=== PATIENT | female | born 1995 | race Caucasian/White ===

== ENCOUNTER 2016-12-23 17:57 | Emergency (ER) | payer OTHER ==
[2016-12-23] MEDS ORDERED: HYDROcod/ACETAM 5/325 MG TABLET PO STA (19:12)
[2016-12-23] MEDS ORDERED: HYDROcod/ACETAM 5/325 MG TABLET ONE (19:15)
== END 2016-12-23 20:19 | disposition home or self-care (01) ==
DX: S93.601A Unspecified sprain of right foot, initial encounter (principal); W01.0XXA Fall on same level from slipping, tripping and stumbling without subsequent striking against object, initial encounter; Y92.210 Daycare center as the place of occurrence of the external cause; Y99.0 Civilian activity done for income or pay
CPT/HCPCS: 1040M; 73630; 99283; A9270

== ENCOUNTER 2018-06-15 08:00 | Outpatient (CLI) | payer OTHER ==
[2018-06-15 15:29] LABS: MUDS CUTOFF CONCENTRATIONS CUTOFF CONC BELOW:
[2018-06-15 15:53] LABS: AMPHETAMINE SCREEN,URINE NEGATIVE (NEGATIVE); BENZODIAZEPINES SCREEN, URINE NEGATIVE (NEGATIVE); COCAINE SCREEN URINE NEGATIVE (NEGATIVE); METHADONE SCREEN, URINE NEGATIVE (NEGATIVE); METHAMPHETAMINES SCREEN, URINE NEGATIVE (NEGATIVE); OPIATE SCREEN, URINE NEGATIVE (NEGATIVE); OXYCODONE SCREEN, URINE NEGATIVE (NEGATIVE); PROPOXYPHENE SCREEN, URINE NEGATIVE (NEGATIVE); TRICYCLIC ANTIDEPRESSANT,URINE NEGATIVE (NEGATIVE)
== END 2018-06-15 08:01 | disposition home or self-care (01) ==
LOC: LAB.R 08:00
PROVIDERS: ATTEND Obstetrics & Gynecology
DX: Z36.9 Encounter for antenatal screening, unspecified (principal)
CPT/HCPCS: 80306

== ENCOUNTER 2018-06-19 15:27 | Outpatient (CLI) | payer OTHER ==
[2018-06-19 15:53] LABS: BASOPHILS # (AUTO) 0.1 10^3/uL (0.0-0.1); EOSINOPHILS % (AUTO) 0.2 %; HGB - HEMOGLOBIN 12.7 g/dL (12.0-16.0); LYMPHOCYTES # (AUTO) 2.7 10^3/uL (1.5-3.5); LYMPHOCYTES % (AUTO) 22.1 %; MEAN CORPUSCULAR HGB CONC 34.4 g/dL (32.0-36.0); MEAN CORPUSCULAR VOLUME 84.3 fL (81.0-99.0); MEAN PLATELET VOLUME 9.1 fL (7.9-10.8); MONOCYTES # (AUTO) 0.8 10^3/uL (0.0-1.0); MONOCYTES % (AUTO) 6.2 %; NEUTROPHILS # (AUTO) 8.8 10^3/uL (1.5-6.6); NEUTROPHILS % (AUTO) 70.5 %; PLT - PLATELET COUNT 229 10^3/uL (130-450); RED BLOOD COUNT 4.37 10^6/uL (4.20-5.40); RED CELL DISTRIBUTION WIDTH 13.8 % (12.0-15.0); WHITE BLOOD COUNT 12.4 x10^3/uL (4.8-10.8)
[2018-06-19 15:55] LABS: BILIRUBIN,URINE NEGATIVE (NEGATIVE); GLUCOSE, URINE (UA) NEGATIVE (NEGATIVE); KETONES,URINE (UA) NEGATIVE (NEGATIVE); LEUKOCYTE ESTERASE, URINE NEGATIVE (NEGATIVE); NITRITE,URINE NEGATIVE (NEGATIVE); OCCULT BLOOD,URINE TRACE-INTA (NEGATIVE); PROTEIN,URINE NEGATIVE (NEGATIVE); UROBILINOGEN,URINE 0.2 (NORMAL) E.U./dL (NORMAL)
[2018-06-19 16:03] LABS: CLARITY,URINE CLEAR (CLEAR)
[2018-06-19 16:12] LABS: BACTERIA,URINE None Seen /HPF (None Seen); RBC,URINE 0-5 /HPF (0-5); SQUAMOUS EPITHELIAL CELL,UR NONE SEEN (<= Few)
[2018-06-20 13:04] LABS: HEPATITIS B SURFACE ANTIGEN NON-REACTIVE (NON-REACTIVE); HEPATITIS C ANTIBODY NON-REACTIVE (NON-REACTIVE)
[2018-06-20 14:15] LABS: HIV AG/AB 4TH GEN NON-REACTIVE (NON-REACTIVE)
== END 2018-06-19 15:28 | disposition home or self-care (01) ==
LOC: LAB 15:27
PROVIDERS: ATTEND Obstetrics & Gynecology
DX: Z36.9 Encounter for antenatal screening, unspecified (principal)
CPT/HCPCS: 36415; 81001; 81599; 85025; 86592; 86762; 86803; 86850; 86900; 86901; 87340; 87389

== ENCOUNTER 2018-06-20 20:47 | Outpatient (CLI) | payer OTHER ==
--- NOTE | 2018-06-21 01:04 | Ultrasound Report ---
Procedure Date: 06/20/2018 Accession Number: [id number] / [id number] Procedure: US - OB First Trimester CPT Code: FULL RESULT: EXAM: FIRST TRIMESTER OBSTETRIC ULTRASOUND (Less than 11 weeks) EXAM DATE: 06/20/2018 10:01 PM. CLINICAL HISTORY: Dating . LMP: 04/19/2018, 8 weeks 6 days. COMPARISONS: None. TECHNIQUE: Transabdominal and transvaginal ultrasound examination with static image documentation. FINDINGS: Gestational Sac: An intrauterine fluid-filled sac contains both an embryo and yolk sac. Tiny perigestational bleed. Embryo: CRL (crown-rump length) measures 21.1 mm corresponding to an estimated gestational age of 8 weeks 5 days. Heart Rate: 183 beats per minute. Placenta: Not visible at this gestational age. Amniotic Fluid: Not accurately assessed at this gestational age. Uterus: Anteverted. Incidental 32 x 26 x 36 mm subserosal fibroid. Cervix: Closed. Right Ovary: Volume 6.8 cc. Normal echotexture and blood flow. Left Ovary: Volume 20.6 cc. Normal echotexture and blood flow, containing a 2.5 x 2 x 2.5 cm complex hemorrhagic-appearing cyst versus endometrioma. Free Fluid: None. Other: None. IMPRESSION: 1. Single live intrauterine at 8 weeks 6 days by LMP, today's exam is concordant -- for an estimated delivery date of 01/24/2019. 2. Incidental 3 cm subserosal fibroid. RADIA
== END 2018-06-20 20:48 | disposition home or self-care (01) ==
LOC: DI 20:47
PROVIDERS: ATTEND Obstetrics & Gynecology
DX: Z32.01 Encounter for pregnancy test, result positive (principal)
CPT/HCPCS: 76801; 76817

== ENCOUNTER 2018-08-16 15:18 | Outpatient (CLI) | payer OTHER | END 2018-08-16 15:19 | disposition home or self-care (01) | LOC: LAB 15:18 | PROVIDERS: ATTEND Obstetrics & Gynecology | DX: Z13.79 Encounter for other screening for genetic and chromosomal anomalies (principal) | CPT/HCPCS: 36415; 81599; 82105; 82677; 84702; 86336 ==

== ENCOUNTER 2018-09-12 07:24 | Outpatient (CLI) | payer OTHER ==
--- NOTE | 2018-09-12 21:28 | Ultrasound Report ---
Reason: ENCOUNTER FOR SCREENING FOR MALFORMATION Procedure Date: 09/12/2018 Accession Number: [id number] / [id number] Procedure: US - OB Detailed Eval CPT Code: FULL RESULT: EXAM: COMPLETE OBSTETRICAL ULTRASOUND EXAM DATE: 09/12/2018 09:58 AM. CLINICAL HISTORY: anatomic survey. COMPARISON: None. TECHNIQUE: Real-time sonographic evaluation of the fetus performed by the truck driver flatbed. Multiple district sales representative static images were saved for review. DATING: Established EGA 20 weeks and 6 days with KILO 01/24/2019 based on LMP. EGA 20 weeks 4 days with KILO 01/26/2019 based on the current ultrasound. GENERAL EVALUATION Page . Cardiac activity: 148 bpm. movement: Visualized. Presentation: Breech. Placenta: Posterior position. No evidence for previa. Umbilical cord: 3 vessel cord. Central placental cord origin. Amniotic fluid: Subjectively normal. MVP 3.8 cm. BIOMETRY Bi-Parietal Diameter (BPD): 4.77 cm, 20 weeks 3 days Head Circumference (HC): 17.81 cm, 20 weeks 2 days Abdominal Circumference (AC): 15.18 cm, 20 weeks 3 days Femur Length (FL): 3.45 cm, 20 weeks 6 days Estimated Weight: 363 g, 31st percentile for 20 weeks 4 days. ANATOMY The intracranial structures, profile, face/nose/lips, spine, 4 chamber heart, stomach, abdominal wall and cord insertion, diaphragm, kidneys, bladder, and extremities were visualized and demonstrate no abnormality. Outflow tracts not well seen. MATERNAL STRUCTURES Uterus: Unremarkable. Cervix: Long and closed. Transabdominal length 4.7 cm. Right ovary/adnexa: Unremarkable. Left ovary/adnexa: Unremarkable. Free fluid: None. IMPRESSION: 1. Page live intrauterine with gestational age 20 weeks 6 days based on LMP. 2. Estimated weight is within expected limits for assigned dating. 3. Normal anatomic survey. No anatomic abnormalities are detected at this time. Outflow tracts not well seen. RADIA
== END 2018-09-12 07:25 | disposition home or self-care (01) ==
LOC: DI 07:24
PROVIDERS: ATTEND Obstetrics & Gynecology
DX: Z36.3 Encounter for antenatal screening for malformations (principal); Z3A.20 20 weeks gestation of pregnancy
CPT/HCPCS: 76811

== ENCOUNTER 2018-09-13 18:50 | Emergency (ER) | payer OTHER ==
[2018-09-13] MEDS ORDERED: ACETAMINOPHEN 325 MG TABLET PO STA (20:57)
--- NOTE | 2018-09-13 21:30 | ED Physician Documentation ---
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 denies: Chills Ears: reports: Ear pain Nose: reports: Congestion Throat: reports: Sore throat Respiratory: denies: Cough GI: denies: Abdominal Pain, Nausea, Vomiting : denies: Now EGA Endocrine: denies: Easy bruising / bleeding Immunocompromised: denies: Immunocompromised PD PAST MEDICAL HISTORY - Past Medical History Past Medical History: No Psych: Anxiety, Bipolar disorder - Past Surgical History Past Surgical History: No - Present Medications Home Medications: Ambulatory Orders Medication Instructions Recorded Confirmed Sertraline HCl [Zoloft] 150 mg PO DAILY 06/07/15 12/23/16 HYDROcod/ACETAM 5/325 [[place] 5/325] 1 - 2 ea PO Q6H PRN #7 tablet 12/23/16 - Allergies Allergies/Adverse Reactions: Allergies Allergy/AdvReac Type Severity Reaction Status Date / Time Sulfa (Sulfonamide Allergy Intermediate Hives Verified 09/13/18 19:27 Antibiotics) sulfamethoxazole Allergy Unknown Verified 09/13/18 19:27 [From ] trimethoprim [From ] Allergy Unknown Verified 09/13/18 19:27 - Social History Does the pt smoke?: No Smoking Status: Never smoker Does the pt drink ETOH?: No Does the pt have substance abuse?: No - Immunizations Immunizations are current?: Yes - POLST Patient has POLST: No PD ED PE NORMAL - Vitals Vital signs reviewed: Yes - General General: Alert and oriented X 3 - HEENT HEENT: PERRL, Ears normal, Moist mucous membranes - Neck Neck: Supple, no meningeal sign - Cardiac Cardiac: RRR - Respiratory Respiratory: No respiratory distress, Clear bilaterally - Abdomen Abdomen: Non tender, Other (gravid) - Derm Derm: Other (slight papular rash to abd) - Neuro Neuro: Alert and oriented X 3 - Free text exam Free text exam: bedside sono shows live IUP with FHT about 150 Results - Vitals Vitals: Vital Signs - 24 hr 09/13/18 09/13/18 09/13/18 19:15 20:57 22:04 Temperature 3.4 C L 38.8 C H Heart Rate 93 88 Respiratory 18 18 Rate Blood Pressure 126/76 124/97 H O2 Saturation 99 98 Oxygen O2 Source Room air - Labs Labs: Laboratory Tests 09/13/18 09/13/18 09/13/18 19:22 21:36 21:57 Urine Color YELLOW Urine Clarity CLEAR Urine pH 7.0 Ur Specific [place] 1.020 Urine Protein NEGATIVE Urine Glucose (UA) NEGATIVE Urine Ketones NEGATIVE Urine Occult Blood NEGATIVE Urine Nitrite NEGATIVE Urine Bilirubin NEGATIVE Urine Urobilinogen 0.2 (NORMAL) Ur Leukocyte Esterase NEGATIVE Ur Microscopic Review NOT INDICATED Urine Culture Comments NOT INDICATED Influenza A (Rapid) Negative Influenza B (Rapid) Negative Group A Strep Rapid Negative PD MEDICAL DECISION MAKING - ED course ED course: UA flu and sstrep neg pt sx are primarily URI she is not tachy or hypotensive or having signs of sepsis will dc with apap up to 3 g per day for fever control Departure - Departure Disposition: 01 Home, Self Care Clinical Impression: Fever Qualifiers: Fever type: unspecified Qualified Code(s): R50.9 - Fever, unspecified Condition: Good Instructions: ED Fever Control, ED URI Viral Follow-Up: Morelia Castillo MD [Primary Care Provider] - Comments: Your labs were fine - you do not have strep or the flu or a urine infection I suspect this is a viral upper respiratory infection. Because you are , tylenol is the only medication recommended for fever You may take up to 3000 mg of tylenol in a 24 hr period If new or different symptoms develop, you should come back to the ER or see your PMD for a recheck
[2018-09-13 22:01] LABS: BILIRUBIN,URINE NEGATIVE (NEGATIVE); GLUCOSE, URINE (UA) NEGATIVE (NEGATIVE); KETONES,URINE (UA) NEGATIVE (NEGATIVE); LEUKOCYTE ESTERASE, URINE NEGATIVE (NEGATIVE); NITRITE,URINE NEGATIVE (NEGATIVE); OCCULT BLOOD,URINE NEGATIVE (NEGATIVE); PROTEIN,URINE NEGATIVE (NEGATIVE); UROBILINOGEN,URINE 0.2 (NORMAL) E.U./dL (NORMAL)
[2018-09-13 22:03] LABS: CLARITY,URINE CLEAR (CLEAR)
[2018-09-13 23:06] VITALS: BP 115/64
== END 2018-09-13 23:11 | disposition home or self-care (01) ==
LOC: ED 18:50
DX: R50.9 Fever, unspecified (principal); R21 Rash and other nonspecific skin eruption
CPT/HCPCS: 81003; 87070; 87275; 87276; 87430; 99282; 99283; A9270; 81001; 87086

== ENCOUNTER 2018-09-29 15:25 | Outpatient (CLI) | payer OTHER ==
[2018-09-29 17:09] LABS: MEAN CORPUSCULAR HEMOGLOBIN 29.5 pg (27.0-31.0); MEAN CORPUSCULAR HGB CONC 33.3 g/dL (32.0-36.0); MEAN CORPUSCULAR VOLUME 88.4 fL (81.0-99.0); MEAN PLATELET VOLUME 9.3 fL (7.9-10.8); RED BLOOD COUNT 4.07 10^6/uL (4.20-5.40); RED CELL DISTRIBUTION WIDTH 14.2 % (12.0-15.0); WHITE BLOOD COUNT 11.1 x10^3/uL (4.8-10.8)
== END 2018-09-29 15:26 | disposition home or self-care (01) ==
LOC: LAB 15:25
PROVIDERS: ATTEND Obstetrics & Gynecology
DX: Z36.89 Encounter for other specified antenatal screening (principal)
CPT/HCPCS: 36415; 82950; 85027; 86850

== ENCOUNTER 2018-12-14 12:51 | Outpatient (CLI) | payer OTHER ==
--- NOTE | 2018-12-14 17:03 | Ultrasound Report ---
Reason: 21 WEEKS GESTATION OF , CARE;[facility] Procedure Date: 12/14/2018 Accession Number: [id number] / [id number] Procedure: US - OB F/U or Repeat CPT Code: FULL RESULT: EXAM: FOLLOW-UP OBSTETRICAL ULTRASOUND EXAM DATE: 12/14/2018 02:21 PM. CLINICAL HISTORY: Follow-up outflow tracts. COMPARISON: 09/12/2018 TECHNIQUE: Real-time sonographic evaluation of the fetus performed by the repair electric motor assembler. Multiple medical collections representative static images were saved for review. DATING: Established EGA 34 weeks 1 day with KILO 01/24/2019 based on physician stated.. EGA 34 weeks 0 days with KILO 01/25/2019 based on prior ultrasound of 06/20/2018. EGA 32 weeks 6 days with KILO 02/02/2019 based on the current ultrasound. GENERAL EVALUATION Page . Cardiac activity: 144 bpm. movement: Present Presentation: Cephalic. Placenta: Posterior position. Amniotic fluid: Normal. JANE 11.2 cm. MVP 4.8 cm. BIOMETRY Bi-Parietal Diameter (BPD): 8.2 cm, 33 weeks 0 days Head Circumference (HC): 30.1 cm, 33 weeks 2 days Abdominal Circumference (AC): 28.7 cm, 32 weeks 5 days Femur Length (FL): 6.3 cm, 32 weeks 4 days Estimated Weight: 2045 g, 13th percentile for 32 weeks 3 days. ANATOMY The cardiac outflow tracts appear normal. MATERNAL STRUCTURES Not assessed. IMPRESSION: 1. Page intrauterine with gestational age 32 weeks 6 days based on the current ultrasound. 2. Estimated weight is at the 13th percentile. 3. No abnormality of the cardiac outflow tracts identified. RADIA
== END 2018-12-14 12:52 | disposition home or self-care (01) ==
LOC: DI 12:51
PROVIDERS: ATTEND Obstetrics & Gynecology
DX: Z34.83 Encounter for supervision of other normal pregnancy, third trimester (principal); Z3A.32 32 weeks gestation of pregnancy
CPT/HCPCS: 76816

== ENCOUNTER 2018-12-22 08:00 | Outpatient (CLI) | payer OTHER | END 2018-12-22 23:59 | disposition home or self-care (01) | LOC: LAB.R 08:00 | PROVIDERS: ATTEND Obstetrics & Gynecology | DX: Z3A.35 35 weeks gestation of pregnancy (principal) | CPT/HCPCS: 87077; 87081; 87491; 87591; 87797 ==

== ENCOUNTER 2019-01-09 00:40 | Outpatient (CLI) | payer OTHER ==
[2019-01-09 01:07] VITALS: BP 127/70
== END 2019-01-09 01:47 | disposition home or self-care (01) ==
LOC: WFO 00:40 → FBP 00:41 → WFO 01:47
PROVIDERS: ATTEND Obstetrics & Gynecology
DX: Z34.03 Encounter for supervision of normal first pregnancy, third trimester (principal)
CPT/HCPCS: 99212

== ENCOUNTER 2019-01-12 16:37 | Outpatient (CLI) | payer OTHER ==
[2019-01-12 17:03] VITALS: BP 129/74
== END 2019-01-12 17:45 | disposition home or self-care (01) ==
LOC: WFO 16:37 → FBP 16:38 → WFO 17:45
PROVIDERS: ATTEND Obstetrics & Gynecology
DX: Z34.03 Encounter for supervision of normal first pregnancy, third trimester (principal)
CPT/HCPCS: 99213

== ENCOUNTER 2019-01-21 11:49 | Outpatient (CLI) | payer OTHER ==
[2019-01-21 12:51] VITALS: BP 113/72
== END 2019-01-21 13:10 | disposition home or self-care (01) ==
LOC: WFO 11:49 → FBP 12:13 → WFO 13:10
PROVIDERS: ATTEND Obstetrics & Gynecology
DX: Z34.93 Encounter for supervision of normal pregnancy, unspecified, third trimester (principal)
CPT/HCPCS: 99213

== ENCOUNTER 2019-01-24 04:17 | Inpatient (IN) | payer OTHER ==
[2019-01-24] MEDS ORDERED: PENICILLIN G POTASSIUM 5,000,000 UNIT in SODIUM CHLORIDE 0.9% MINIBAG 100 ML IV ONE (04:56)
[2019-01-24] MEDS ORDERED: SODIUM CHLORIDE FLUSH 0.9% 10 ML SYRINGE IVP PRN (04:56)
[2019-01-24] MEDS ORDERED: LACTATED RINGERS 1,000 ML IV SCH (05:00)
[2019-01-24 06:19] LABS: BASOPHILS # (AUTO) 0.1 10^3/uL (0.0-0.1); BASOPHILS % (AUTO) 0.6 %; EOSINOPHILS % (AUTO) 0.2 %; HGB - HEMOGLOBIN 12.9 g/dL (12.0-16.0); LYMPHOCYTES # (AUTO) 2.2 10^3/uL (1.5-3.5); MEAN CORPUSCULAR HEMOGLOBIN 29.8 pg (27.0-31.0); MEAN CORPUSCULAR VOLUME 87.7 fL (81.0-99.0); MEAN PLATELET VOLUME 10.1 fL (7.9-10.8); MONOCYTES # (AUTO) 0.8 10^3/uL (0.0-1.0); MONOCYTES % (AUTO) 6.9 %; NEUTROPHILS # (AUTO) 9.1 10^3/uL (1.5-6.6); NEUTROPHILS % (AUTO) 74.3 %; PLT - PLATELET COUNT 179 10^3/uL (130-450); RED BLOOD COUNT 4.31 10^6/uL (4.20-5.40); RED CELL DISTRIBUTION WIDTH 13.5 % (12.0-15.0); WHITE BLOOD COUNT 12.2 x10^3/uL (4.8-10.8)
--- NOTE | 2019-01-24 08:51 | ANESTHESIA ---
Pre-Anesthesia VS, & Labs - Diagnosis Active labor - Procedure vaginal delivery Vital Signs: Temp Pulse Resp BP Pulse Ox 36.5 C 84 24 127/85 H 100 01/24/19 04:32 01/24/19 04:32 01/24/19 04:32 01/24/19 04:32 01/24/19 04:32 Height 5 ft 7 in Body Mass Index 36.8 - NPO Other (on clear liquids) - Is Patient ?: Yes - Lab Results Current Lab Results: Laboratory Tests 01/24/19 06:08: WBC 12.2 H, RBC 4.31, Hgb 12.9, Hct 37.8, MCV 87.7, MCH 29.8, MCHC 34.0, RDW 13.5, Plt Count 179, MPV 10.1, Neut # (Auto) 9.1 H, Lymph # (Auto) 2.2, [place] # (Auto) 0.8, Eos # (Auto) 0.0, Baso # (Auto) 0.1, Absolute Nucleated RBC 0.01, Nucleated RBC % 0.1 Lab results reviewed: Yes Fish Bones: 01/24/19 06:08 Home Medications and Allergies Active Medications Lactated Ringer's (Lr) 1,000 mls @ 150 mls/hr IV .Q6H40M RIK Last Admin: 01/24/19 06:21 Dose: 150 mls/hr Penicillin G Potassium 2,500, (000 unit/ Sodium Chloride) 100 mls @ 200 mls/hr IV Q4H RIK Sodium Chloride (Normal Saline Flush 0.9%) 10 ml IVP PRN PRN PRN Reason: NEEDED PER PROVIDER ORDERS Sodium Chloride (Normal Saline Flush 0.9%) 10 ml IVP 0100,0900,1700 [facility] Sertraline HCl [Zoloft] 150 mg PO DAILY 06/07/15 prozac 20mg daily Allergies/Adverse Reactions: Allergies Allergy/AdvReac Type Severity Reaction Status Date / Time Sulfa (Sulfonamide Allergy Intermediate Hives Verified 09/13/18 19:27 Antibiotics) sulfamethoxazole Allergy Unknown Verified 09/13/18 19:27 [From ] trimethoprim [From ] Allergy Unknown Verified 09/13/18 19:27 Anes History & Medical History - Anesthetic History Family history of Anesthesia Complications: Denies Family history of Malignant Hyperthermia: Denies - Medical History Cardiovascular: reports: None Pulmonary: reports: None Gastrointestinal: reports: None Urinary: reports: None Neuro: reports: None Musculoskeletal: reports: None Endocrine/Autoimmune: reports: None Blood Disorders: reports: None Smoking Status: Never smoker Psychosocial: reports: Depression, Anxiety Exam General: Alert, Oriented x3, Cooperative, No acute distress Dental: WNL Mouth Openin Fingerbreadth Neck Mobility: Normal Mallampati classification: II Thyromental Distance: 4-6 cm Respiratory: Lungs clear, Normal breath sounds, No respiratory distress, No accessory muscle use Cardiovascular: Regular rate, Normal S1, Normal S2, No murmurs Mental/Cognitive Status: Alert/Oriented X3, Normal for patient Plan Anesthesia Type: Epidural Consent for Procedure(s) Verified and Reviewed: Yes Code Status: Attempt Resuscitation ASA classification: 2-Mild systemic disease Is this case an emergency?: No
[2019-01-24] MEDS ORDERED: SODIUM CHLORIDE FLUSH 0.9% 10 ML SYRINGE IVP SCH (09:00)
[2019-01-24] MEDS ORDERED: PENICILLIN G POTASSIUM 2,500,000 UNIT in SODIUM CHLORIDE 0.9% 100ML 100 ML IV SCH ×2 (09:00→11:00)
--- NOTE | 2019-01-24 09:14 | HISTORY & PHYSICAL EXAMINATION ---
Chief Complaint - Chief Complaint Chief Complaint: Contractions History of Present Illness - Admitted From Admitted From:: HOME - History Obtained From Records Reviewed: YES History obtained from: PATIENT Exam Limitations: NONE - History of Present Illness HPI Comment/Other: 23 y.o. with EDC 01/24/10 by LMP and 8 week US, admitted early this AM in labor for delivery. GBS +, she received her first dose of PCN at 0630 hours and is receiving PCN q4h until delivery. She was admitted at 4 cm dilation, has a category I FHR tracing. Cx exam by me at 0815 480/-1/VTX/BOWI. Course: 1) Anxiety/Depression: Has been on prozac since several months before . No hx of hospitalization for this or suicidal ideation. 2) Migraines: Intermittent in nature. She reports having this since about age 14. Saw a neurologist at start of . Work-up by possible imaging to be continued . Patient usually takes tylenol for h/a during . Has only had a few episodes of h/a during , none now. 3) Low Back Spasms: Intermittent in nature. No hx of trauma LABS: Quad Screen Negative 06/15/18: Pap WNL GC/CT Neg x 2 06/19/18: Urine Tox Neg Rubella POS HBsAg/HIV/RPR all NR x 3 Hep C Neg MBT A POS PNAS Neg 07/23/18: TSH 2.02 09/29/18: HCT/PLT 36/201 1 HR GTT 120 12/20/18: GBS POS Immunizations: Flu 07/28/18 TDAP 11/27/18 PMH: Anxiety/Depression (above), Back Spasms, Migraines (above) Meds: PNV, Prozac 10 mg/d PSH: Neg SHx: Neg for smoking/ETOH/Drugs Allergy: Sulfa (itching and hives) History - Past Medical History Cardiovascular: reports: None Respiratory: reports: None Neuro: reports: Migraines Endocrine/Autoimmune: reports: None GI: reports: None 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 : reports: None HEENT: reports: None Psych: reports: Depression, Anxiety Musculoskeletal: reports: Other (Intermittent Back Spasms) Derm: reports: None MRSA Hx?: No - Past Surgical History Other past surgical history: PSH NEGATIVE - Substance History Use: Uses substance without health or social issues: NONE - POLST Patient has POLST: No Meds/Allgy - Allergies Allergies/Adverse Reactions: Allergies Allergy/AdvReac Type Severity Reaction Status Date / Time Sulfa (Sulfonamide Allergy Intermediate Hives Verified 09/13/18 19:27 Antibiotics) sulfamethoxazole Allergy Unknown Verified 09/13/18 19:27 [From ] trimethoprim [From ] Allergy Unknown Verified 09/13/18 19:27 Exam - Vital Signs Reviewed Vital Signs: Yes Vital Signs: Vital Signs x48h Temp Pulse Resp BP Pulse Ox 01/24/19 04:32 36.5 C 84 24 127/85 H 100 - Physical Exam General Appearance: positive: No acute distress, Alert Eyes Bilateral: positive: Normal inspection ENT: positive: ENT inspection nml, Pharynx nml Neck: positive: Nml inspection Respiratory: positive: Chest non-tender, No respiratory distress, Breath sounds nml Cardiovascular: positive: Regular rate & rhythm, No murmur, No gallop Peripheral Pulses: positive: 2+ Abdomen: positive: Non-tender, No organomegaly, Other (CX 4/80/-1/VTX/BOWI at 0815 hours. Category I FHR tracing with contactions q4-6 mins,) Back: positive: Nml inspection Skin: positive: Color nml, No rash, Warm Neurologic/Psychiatric: positive: Oriented x3, CN's nml (2-12) Conclusion/Plan - Problem List (1) Active labor at term Conclusion/Plan: # 23 y.o. 40 0/7 weeks in active, spontaneous labor at 4 cm dilation, BOWI, Category I FHR tracing, adequate pelvis, [place] 7 1/2 lbs. # GBS + and is getting PCN ABX prophylaxis, first dose at 0630 hours. # Analgesia: currently on Nitrous oxide, interested in epidural later. # Prozac 10 mg/d for anxiety/depression, currently no issues. # Labor Plan: Patient has a labor plan that has been reviewed and discussed with the patient and her partner. Requests are reasonable. One of items mentioned in plan was for FOB to cut the cord at delivery. I explained I would try to honor that specific request, if possible, at the time of delivery. All questions answered to their satisfaction. Plan: Expectant management at this time. Will re-examine patient after 2nd dose of ABX for GBS given (scheduled for 1030 hours) AROM/Pitocin Augmentation/Epidural as needed. - Lab Results Lab results reviewed: Yes Fish Bones: 01/24/19 06:08
--- NOTE | 2019-01-24 12:44 | PROVIDER PROGRESS NOTE ---
Subjective - Prog Note Date Prog Note Date: 01/24/19 Prog Note Time: 12:38 - Subjective Subjective: Category I FHR tracing with spontaneous contractions q4 min. 2nd dose of PCN for GBS prophylaxis completed. AROM performed on multiple attempts with no fluid obtained. FSE applied easily with excellent quality signal. Abdominal bedside US by me showed no amniotic fluid pockets around baby, suggesting patient was successfully AROMed but with oligohydramnios. IUPC placement was attempted but catheter came out partially twice. Patient is making cervical change, now 6/- 1. ANS here for epidural. Will continue to allow patient to labor spontaneously as she continues to make cervical change with spontaneous contractions. Objective - Vital Signs/Intake & Output Vital Signs: Vital Signs x48h Temp Pulse Resp BP 01/24/19 08:00 36.7 C 79 18 128/76 - Lab Results Fish Bones: 01/24/19 06:08 Other Labs: Lab Results x24hrs 01/24/19 Range/Units 06:08 WBC 12.2 H (4.8-10.8) x10^3/uL RBC 4.31 (4.20-5.40) 10^6/uL Hgb 12.9 (12.0-16.0) g/dL Hct 37.8 (37.0-47.0) % MCV 87.7 (81.0-99.0) fL MCH 29.8 (27.0-31.0) pg MCHC 34.0 (32.0-36.0) g/dL RDW 13.5 (12.0-15.0) % Plt Count 179 (130-450) 10^3/uL MPV 10.1 (7.9-10.8) fL Neut # (Auto) 9.1 H (1.5-6.6) 10^3/uL Lymph # (Auto) 2.2 (1.5-3.5) 10^3/uL [place] # (Auto) 0.8 (0.0-1.0) 10^3/uL Eos # (Auto) 0.0 (0.0-0.7) 10^3/uL Baso # (Auto) 0.1 (0.0-0.1) 10^3/uL Absolute Nucleated RBC 0.01 x10^3/uL Nucleated RBC % 0.1 /100WBC
[2019-01-24] MEDS ORDERED: fent/BUPIV 2 MCG/0.125% 250 ML EP ONE (12:54)
[2019-01-24] MEDS ORDERED: BUPIVACAINE 0.25% PF 10 ML VIAL ONE (12:54)
[2019-01-24] MEDS ORDERED: fent/BUPIV 2 MCG/0.125% 250 ML EP PRN (13:09)
[2019-01-24] MEDS ORDERED: ONDANSETRON 4 MG/2 ML VIAL IVP PRN (13:09)
[2019-01-24] MEDS ORDERED: ePHEDrine 50 MG/ML VIAL IVP PRN (13:09)
[2019-01-24] MEDS ORDERED: NALBUPHINE 10 MG/ML AMP IVP PRN (13:09)
[2019-01-24] MEDS ORDERED: NALOXONE 0.4 MG/ML VIAL IVP PRN (13:09)
[2019-01-24] MEDS ORDERED: LACTATED RINGERS 500 ML IV ONE (13:09)
--- NOTE | 2019-01-24 15:19 | PROVIDER PROGRESS NOTE ---
Subjective - Prog Note Date Prog Note Date: 01/24/19 Prog Note Time: 15:16 - Subjective Subjective: Patient now with functional epidural. Category I FHR tracing with spontaneous contractions. AL/C/-1. Continue present care. Objective - Vital Signs/Intake & Output Vital Signs: Vital Signs x48h Temp Pulse Resp BP 01/24/19 08:00 36.7 C 79 18 128/76 Intake & Output: Intake & Output 01/21/19 01/22/19 01/23/19 01/24/19 23:59 23:59 23:59 23:59 Intake Total 1000 Balance 1000 - Lab Results Fish Bones: 01/24/19 06:08 Other Labs: Lab Results x24hrs 01/24/19 Range/Units 06:08 WBC 12.2 H (4.8-10.8) x10^3/uL RBC 4.31 (4.20-5.40) 10^6/uL Hgb 12.9 (12.0-16.0) g/dL Hct 37.8 (37.0-47.0) % MCV 87.7 (81.0-99.0) fL MCH 29.8 (27.0-31.0) pg MCHC 34.0 (32.0-36.0) g/dL RDW 13.5 (12.0-15.0) % Plt Count 179 (130-450) 10^3/uL MPV 10.1 (7.9-10.8) fL Neut # (Auto) 9.1 H (1.5-6.6) 10^3/uL Lymph # (Auto) 2.2 (1.5-3.5) 10^3/uL [place] # (Auto) 0.8 (0.0-1.0) 10^3/uL Eos # (Auto) 0.0 (0.0-0.7) 10^3/uL Baso # (Auto) 0.1 (0.0-0.1) 10^3/uL Absolute Nucleated RBC 0.01 x10^3/uL Nucleated RBC % 0.1 /100WBC
[2019-01-24] MEDS ORDERED: OXYTOCIN/SODIUM CHLORIDE 500 ML IV ONE (15:23)
[2019-01-24] MEDS ORDERED: LIDOCAINE-MPF 1% 30 ML VIAL ONE (18:27)
[2019-01-24] MEDS ORDERED: HYDROCORTISONE 1% CREAM 28 GM TUBE PR PRN (19:50)
[2019-01-24] MEDS ORDERED: MAGNESIUM HYDROXIDE 2,400 MG/30 ML UDC PO PRN (19:50)
[2019-01-24] MEDS ORDERED: OXYTOCIN/SODIUM CHLORIDE 500 ML IV PRN (19:50)
--- NOTE | 2019-01-24 20:07 | PROVIDER PROGRESS NOTE ---
Subjective - Prog Note Date Prog Note Date: 01/24/19 Prog Note Time: 19:56 - Subjective Subjective: OPERATIVE DELIVERY NOTE: FORCEPS: MIGUEL ANS: EPIDURAL STATION: OUTLET (4/5+) POSITIONS: AMANDA <45 DEGREES ROTATION INDICATION: NRFHR COMMENTS: Patient progressed to C/C/+1 at 1539. Pushed intermittently for first two hours with cxns q 4 min. Began having regular FHR decels down to 80s - 90s with pushing. Called for Peds. Patient was able to push baby down to 4+ station. Counseled and consented verbablly for forceps delivery regarding major risks/ complications (bladder/rectal injury, incontinence of flatus/feces). Patient agreed to forceps. Bladder emptied via straight cath by me. Miguel forceps applied easily in routine fashion and 15 degree rotation to straight OA performed. Patient instructed to push and on first set of push-pulls head brought out past perineal opening, forceps removed, and mother pushed baby out spontaneously. Cord clamped x 2 immediately, cut between clamps and baby handed to check examiner. Segment of cord set aside for gases. Cord blood obtained. IV rapid pitocin infusion started. Baby delivered was viable female with 7/9 (weight pending) at 1836 hours. Placenta delivered spontaneously at 1839 hours. Exam of canal revealed intact cervix, BL vaginal floor lacs at 5 and 7 oclock positions, the one at 5 oclock only 2", the one at 7 oclock approx 5 4 inches. Both lacs repaired with running and locking 3-0 vicryl with good hemostasis. Perineal body reinforced with interrupted 3-0 vicryl to 2 and superficial first degree perineal lac with 3-0 vcryl in layers. 15 ml of 1% lidocaine plain local ANS used. No bleeding at end of repair. EBL 500 mL. Both mother and baby doing well. Objective - Vital Signs/Intake & Output Intake & Output: Intake & Output 01/21/19 01/22/19 01/23/19 01/24/19 23:59 23:59 23:59 23:59 Intake Total 1000 Balance 1000 - Lab Results Fish Bones: 01/24/19 06:08 Other Labs: Lab Results x24hrs 01/24/19 Range/Units 06:08 WBC 12.2 H (4.8-10.8) x10^3/uL RBC 4.31 (4.20-5.40) 10^6/uL Hgb 12.9 (12.0-16.0) g/dL Hct 37.8 (37.0-47.0) % MCV 87.7 (81.0-99.0) fL MCH 29.8 (27.0-31.0) pg MCHC 34.0 (32.0-36.0) g/dL RDW 13.5 (12.0-15.0) % Plt Count 179 (130-450) 10^3/uL MPV 10.1 (7.9-10.8) fL Neut # (Auto) 9.1 H (1.5-6.6) 10^3/uL Lymph # (Auto) 2.2 (1.5-3.5) 10^3/uL [place] # (Auto) 0.8 (0.0-1.0) 10^3/uL Eos # (Auto) 0.0 (0.0-0.7) 10^3/uL Baso # (Auto) 0.1 (0.0-0.1) 10^3/uL Absolute Nucleated RBC 0.01 x10^3/uL Nucleated RBC % 0.1 /100WBC
[2019-01-24] MEDS: ACETAMINOPHEN 325 MG TABLET PO PRN (20:15)
[2019-01-24] MEDS: DOCUSATE SODIUM 100 MG CAPSULE PO SCH (20:15)
[2019-01-24] MEDS: IBUPROFEN 800 MG TABLET PO PRN (20:15)
[2019-01-24] MEDS: WITCH HAZEL/GLYCERIN 1 EACH MED..PAD TOP PRN (20:16)
[2019-01-25] MEDS: ACETAMINOPHEN 325 MG TABLET PO PRN ×5 (00:25→19:54)
[2019-01-25] MEDS: IBUPROFEN 800 MG TABLET PO PRN ×4 (03:08→21:22)
[2019-01-25 06:55] LABS: BASOPHILS # (AUTO) 0.1 10^3/uL (0.0-0.1); BASOPHILS % (AUTO) 0.5 %; EOSINOPHILS % (AUTO) 0.2 %; HGB - HEMOGLOBIN 10.8 g/dL (12.0-16.0); LYMPHOCYTES # (AUTO) 2.4 10^3/uL (1.5-3.5); MEAN CORPUSCULAR HEMOGLOBIN 29.5 pg (27.0-31.0); MEAN CORPUSCULAR HGB CONC 33.2 g/dL (32.0-36.0); MEAN CORPUSCULAR VOLUME 88.8 fL (81.0-99.0); MEAN PLATELET VOLUME 9.9 fL (7.9-10.8); MONOCYTES % (AUTO) 7.3 %; NEUTROPHILS # (AUTO) 10.7 10^3/uL (1.5-6.6); PLT - PLATELET COUNT 167 10^3/uL (130-450); RED BLOOD COUNT 3.67 10^6/uL (4.20-5.40); RED CELL DISTRIBUTION WIDTH 13.8 % (12.0-15.0); WHITE BLOOD COUNT 14.2 x10^3/uL (4.8-10.8)
[2019-01-25] MEDS: DOCUSATE SODIUM 100 MG CAPSULE PO SCH ×2 (09:03→21:22)
[2019-01-25] MEDS: SIMETHICONE CHEW 80 MG TABLET PO PRN ×2 (09:03→15:10)
--- NOTE | 2019-01-25 09:11 | PROVIDER PROGRESS NOTE ---
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 O: VSS/AF Ux firm U-6 and NT Normal lochia MS/NM: N/C A/P: PPD #1 doing well Routine care. Objective - Vital Signs/Intake & Output Vital Signs: Vital Signs x48h Temp Pulse Resp BP Pulse Ox 01/25/19 05:52 36.7 C 80 16 103/62 100 Intake & Output: Intake & Output 01/22/19 01/23/19 01/24/19 01/25/19 23:59 23:59 23:59 23:59 Intake Total 1200 500 Output Total 480 200 Balance 720 300 - Lab Results Fish Bones: 01/25/19 06:18 Other Labs: Lab Results x24hrs 01/25/19 Range/Units 06:18 WBC 14.2 H (4.8-10.8) x10^3/uL RBC 3.67 L (4.20-5.40) 10^6/uL Hgb 10.8 L (12.0-16.0) g/dL Hct 32.6 L (37.0-47.0) % MCV 88.8 (81.0-99.0) fL MCH 29.5 (27.0-31.0) pg MCHC 33.2 (32.0-36.0) g/dL RDW 13.8 (12.0-15.0) % Plt Count 167 (130-450) 10^3/uL MPV 9.9 (7.9-10.8) fL Neut # (Auto) 10.7 H (1.5-6.6) 10^3/uL Lymph # (Auto) 2.4 (1.5-3.5) 10^3/uL [place] # (Auto) 1.0 (0.0-1.0) 10^3/uL Eos # (Auto) 0.0 (0.0-0.7) 10^3/uL Baso # (Auto) 0.1 (0.0-0.1) 10^3/uL Absolute Nucleated RBC 0.01 x10^3/uL Nucleated RBC % 0.1 /100WBC
[2019-01-25] MEDS: oxyCODONE 5 MG TABLET PO PRN ×3 (12:44→23:20)
[2019-01-25] MEDS: WITCH HAZEL/GLYCERIN 1 EACH MED..PAD TOP PRN (15:10)
[2019-01-26] MEDS: ACETAMINOPHEN 325 MG TABLET PO PRN ×4 (01:26→15:06)
[2019-01-26] MEDS: IBUPROFEN 800 MG TABLET PO PRN ×3 (02:49→15:06)
[2019-01-26] MEDS: oxyCODONE 5 MG TABLET PO PRN (03:02)
--- NOTE | 2019-01-26 08:15 | Discharge Plan ---
Discharge Plan Disposition: 01 Home, Self Care Diet: Regular Activity Restrictions: SEE WRITTEN INSTRUCTIONS Shower Restrictions: No Weight Bearing: Full Weight Additional Instructions or Follow Up instructions: SEE DR. WINN AT [facility] 2 WEEKS . CALL FOR APPOINTMENT IF ONE NOT GIVEN AT DISCHARGE. No Smoking: If you smoke, Please STOP! Call for help.
--- NOTE | 2019-01-26 08:25 | DISCHARGE SUMMARY ---
"Discharge Summary Admit Date: 01/24/19 Discharge Date: 01/26/19 Discharging Provider: AUSTIN Condition at Discharge: Good Discharge Disposition: 01 Home, Self Care - DIAGNOSES Admission Diagnoses: TERM LABOR Discharge Diagnoses with Status of Each Condition: LABOR (GOOD CONDITION) OUTLET FORCEPS-ASSISTED VAGINAL DELIVERY (GOOD CONDITION) - HPI History of Present Illness: History of Present Illness - Admitted From Admitted From:: HOME - History Obtained From Records Reviewed: YES History obtained from: PATIENT Exam Limitations: NONE - History of Present Illness HPI Comment/Other: 23 y.o. with EDC 01/24/10 by LMP and 8 week US, admitted early this AM in labor for delivery. GBS +, she received her first dose of PCN at 0630 hours and is receiving PCN q4h until delivery. She was admitted at 4 cm dilation, has a category I FHR tracing. Cx exam by me at 0815 480/-1/VTX/BOWI. Course: 1) Anxiety/Depression: Has been on prozac since several months before . No hx of hospitalization for this or suicidal ideation. 2) Migraines: Intermittent in nature. She reports having this since about age 14. Saw a neurologist at start of . Work-up by possible imaging to be continued . Patient usually takes tylenol for h/a during . Has only had a few episodes of h/a during , none now. 3) Low Back Spasms: Intermittent in nature. No hx of trauma LABS: Quad Screen Negative 06/15/18: Pap WNL GC/CT Neg x 2 06/19/18: Urine Tox Neg Rubella POS HBsAg/HIV/RPR all NR x 3 Hep C Neg MBT A POS PNAS Neg 07/23/18: TSH 2.02 09/29/18: HCT/PLT 36/201 1 HR GTT 120 12/20/18: GBS POS Immunizations: Flu 07/28/18 TDAP 11/27/18 PMH: Anxiety/Depression (above), Back Spasms, Migraines (above) Meds: PNV, Prozac 10 mg/d PSH: Neg SHx: Neg for smoking/ETOH/Drugs Allergy: Sulfa (itching and hives) History - Past Medical History Cardiovascular: reports: None Respiratory: reports: None Neuro: reports: Migraines Endocrine/Autoimmune: reports: None GI: reports: None 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 : reports: None HEENT: reports: None Psych: reports: Depression, Anxiety Musculoskeletal: reports: Other (Intermittent Back Spasms) Derm: reports: None MRSA Hx?: No - Past Surgical History Other past surgical history: PSH NEGATIVE - Substance History Use: Uses substance without health or social issues: NONE - POLST Patient has POLST: No Meds/Allgy - Allergies Allergies/Adverse Reactions: Allergies Allergy/AdvReac Type Severity Reaction Status Date / Time Sulfa (Sulfonamide Allergy Intermediate Hives Verified 09/13/18 19:27 Antibiotics) sulfamethoxazole Allergy Unknown Verified 09/13/18 19:27 [From ] trimethoprim [From ] Allergy Unknown Verified 09/13/18 19:27 Exam - Vital Signs Reviewed Vital Signs: Yes Vital Signs: Vital Signs x48h Temp Pulse Resp BP Pulse Ox 01/24/19 04:32 36.5 C 84 24 127/85 H 100 - Physical Exam General Appearance: positive: No acute distress, Alert Eyes Bilateral: positive: Normal inspection ENT: positive: ENT inspection nml, Pharynx nml Neck: positive: Nml inspection Respiratory: positive: Chest non-tender, No respiratory distress, Breath sounds nml Cardiovascular: positive: Regular rate & rhythm, No murmur, No gallop Peripheral Pulses: positive: 2+ Abdomen: positive: Non-tender, No organomegaly, Other (CX 4/80/-1/VTX/BOWI at 0815 hours. Category I FHR tracing with contactions q4-6 mins,) Back: positive: Nml inspection Skin: positive: Color nml, No rash, Warm Neurologic/Psychiatric: positive: Oriented x3, CN's nml (2-12) Conclusion/Plan - Problem List (1) Active labor at term Conclusion/Plan: # 23 y.o. 40 0/7 weeks in active, spontaneous labor at 4 cm dilation, BOWI, Category I FHR tracing, adequate pelvis, [place] 7 1/2 lbs. # GBS + and is getting PCN ABX prophylaxis, first dose at 0630 hours. # Analgesia: currently on Nitrous oxide, interested in epidural later. # Prozac 10 mg/d for anxiety/depression, currently no issues. # Labor Plan: Patient has a labor plan that has been reviewed and discussed with the patient and her partner. Requests are reasonable. One of items mentioned in plan was for FOB to cut the cord at delivery. I explained I would try to honor that specific request, if possible, at the time of delivery. All questions answered to their satisfaction. Plan: Expectant management at this time. Will re-examine patient after 2nd dose of ABX for GBS given (scheduled for 1030 hours) AROM/Pitocin Augmentation/Epidural as needed. - Lab Results Lab results reviewed: Yes Fish Bones: 01/24/19 06:08 - CONSULTS | PROCEDURES Procedures: EPIDURAL ANESTHESIA FORCEPS-ASSISTED VAGINAL DELIVERY - HOSPITAL COURSE Hospital Course: The patient received IV ABX for GBS prophylaxis. She subsequently underwent an outlet forceps-assisted vaginal delivery on 01/24/19 at 1836 hours productive of 7 6 lbs. 7.2 onz female with 7/9. She had BL vaginal floor lacs and first degree perineal lac. that were all repaired without difficulty. EBL at delivery was average. She had an uncomplicated course. - ALLERGIES Allergies/Adverse Reactions: Allergies Allergy/AdvReac Type Severity Reaction Status Date / Time Sulfa (Sulfonamide Allergy Intermediate Hives Verified 09/13/18 19:27 Antibiotics) sulfamethoxazole Allergy Unknown Verified 09/13/18 19:27 [From ] trimethoprim [From ] Allergy Unknown Verified 09/13/18 19:27 - MEDICATIONS Home Medications Other | Comments: Motrin 800 mg, #45: 1 p.o. q8h WF prn pain. Colace 100 mg #30: 1 p.o. bid prn constipation - PHYSICAL EXAM AT DISCHARGE General Appearance: positive: No acute distress, Alert Cardiovascular: positive: Regular rate & rhythm, No murmur, No gallop Peripheral Pulses: positive: 2+ Abdomen: positive: Non-tender, Other (Ux firm U-4 and NT, normal lochia) Back: positive: Nml inspection Skin: positive: Color nml, No rash, Warm Extremities: positive: Non-tender, Full ROM Neurologic/Psychiatric: positive: Oriented x3, CN's nml (2-12), Motor nml - LABS Result Diagrams: 01/25/19 06:18 - FOLLOW UP Follow Up: SEE DR. WINN IN 2 WEEKS. CALL FOR APPOINTMENT IF ONE NOT GIVEN AT DISCHARGE. - TIME SPENT Time Spent in Discharge (Minutes): 45"
[2019-01-26] MEDS: DOCUSATE SODIUM 100 MG CAPSULE PO SCH (09:13)
[2019-01-26 15:30] VITALS: BP 103/58
--- NOTE | 2019-01-26 18:10 | Labor Flowsheet ---
Labor Flowsheet Datetime Report Generated by CPN: 01/26/2019 18:10 Datetime: 01/26/2019 15:10 VITAL SIGNS NBP Sys/Jody/Mean (mmHg): 103 : 58 : 70 Pulse: 89 LaborFlag: Labor Datetime: 01/26/2019 11:29 SpO2 (%): 100 Datetime: 01/24/2019 18:34 STAGE 2 Forceps: Removed Datetime: 01/24/2019 18:31 Comments: FSE removed Datetime: 01/24/2019 18:30 UTERINE ACTIVITY Monitor Mode: External Frequency (min): 2.5-5 Quality: Moderate Duration (sec): 50-100 Pattern: Normal: <= 5 Contractions in 10 Minutes Resting Tone (Palpate): Relaxed ASSESSMENT A Monitor Mode: Internal Scalp Electrode FHR Baseline Rate : 125 Variability: Moderate 6-25 bpm Accelerations: 15X15 Decelerations: Variable Actions for Decelerations: Side to Side Datetime: 01/24/2019 18:12 COMMUNICATION Communication: Provider at Bedside Provider Notified (Name): DR TYESHA PEDS Datetime: 01/24/2019 18:05 Communication Comments: Notified Ped of possible operative delivery. OB provider requesting Ped pre sence at delivery Datetime: 01/24/2019 16:30 Temperature (C): 36.9 Datetime: 01/24/2019 15:39 VAGINAL EXAM Dilatation (cm): 10.0 Station: 1 Exam by: Tilltoson Datetime: 01/24/2019 15:09 Effacement (%): 100 Datetime: 01/24/2019 15:00 MEDICATIONS Antibiotics: Penicillin IV (Units) @ (Annotations: 2.5) Datetime: 01/24/2019 14:30 Category: Category II Datetime: 01/24/2019 13:00 Epidural Procedure Other: Pump Started Datetime: 01/24/2019 12:43 Epidural Procedure: Cath Placed Datetime: 01/24/2019 12:30 Stage of : Labor Contraction Comments: TOCO REMOVE DURING IUPC ATTEMPT PATIENT CARE IV/Blood Work: IV Bolus Started PROCEDURE TIME OUT Procedure Verify: Correct Patient Identity; Correct Side and Site are Marked; Accurate Procedure Co nsent Form; Agreement on Procedure to be Done; Correct Patient Position; Safety Precautions Based on Patient History or Medication Use ANESTHESIA Anesthesia Plans: Epidural Epidural Positioning: Sitting Datetime: 01/24/2019 12:15 Monitor Interventions for FHR: FSE Applied Membranes Ruptured Date/Time: 01/24/2019 12:15 Membranes Rupture Method: Artificial Amniotic Fluid Amount: None Amniotic Fluid Odor: None Vaginal Bleeding: Small Datetime: 01/24/2019 11:34 Resting Tone IUP (mmHg): 20 Intensity IUP (mmHg): MODERATE Datetime: 01/24/2019 09:30 Monitor Interventions for UA: [place] Adjusted Oxygen Method: Room Air Datetime: 01/24/2019 08:47 Anesthesia Comments: Johnnie @BS discussing epidural with pt . Datetime: 01/24/2019 08:10 Cervix, Consistency: Soft Cervix, Position: Midposition Datetime: 01/24/2019 07:06 Patient Position/Activity: Birthing Ball Datetime: 01/24/2019 07:02 I/O Interventions: Up to BR Datetime: 01/24/2019 06:28 PAIN Pain Scale: 9 Pain Presence: Intermittent Pain Type: Contraction Pain Location: Abdomen Pain Coping: Breathing Through Contractions Pain Assessment Comments: pt now using nitrous MATERNAL ASSESSMENT Level of Consciousness: Fully Conscious Headache: Generalized Breath Sounds, Left: Clear and Equal Breath Sounds, Right: Clear and Equal Nausea/Vomiting: Denies RUQ Epigastric Pain: Denies Comfort Measures: Breathing/Relaxation
== END 2019-01-26 16:15 | disposition home or self-care (01) | DRG 806 ==
LOC: WFO 04:17 → FBP 04:19 → WFO 04:57 → FBP 01-26 17:41
PROVIDERS: ADMIT Obstetrics & Gynecology; ATTEND Obstetrics & Gynecology
PROC: 10D07Z3 Extraction of Products of Conception, Low Forceps, Via Natural or Artificial Opening (ICD-10-PCS; principal; 2019-01-24)
PROC: 10907ZC Drainage of Amniotic Fluid, Therapeutic from Products of Conception, Via Natural or Artificial Opening (ICD-10-PCS; 2019-01-24)
DX: O99.344 Other mental disorders complicating childbirth (principal); O41.03X0 Oligohydramnios, third trimester, not applicable or unspecified; Z37.0 Single live birth; O71.4 Obstetric high vaginal laceration alone; O76 Abnormality in fetal heart rate and rhythm complicating labor and delivery; O99.824 Streptococcus B carrier state complicating childbirth; F41.9 Anxiety disorder, unspecified; O70.0 First degree perineal laceration during delivery; O32.9XX0 Maternal care for malpresentation of fetus, unspecified, not applicable or unspecified; O99.350 Diseases of the nervous system complicating pregnancy, unspecified trimester; G43.909 Migraine, unspecified, not intractable, without status migrainosus; O99.89 Other specified diseases and conditions complicating pregnancy, childbirth and the puerperium; M62.830 Muscle spasm of back; Z3A.40 40 weeks gestation of pregnancy
CPT/HCPCS: 36415; 85025; 99213; A9270; J7120

== ENCOUNTER 2019-02-19 17:20 | Emergency (ER) | payer MEDICAID, OTHER ==
[2019-02-19 18:00] LABS: BILIRUBIN,URINE NEGATIVE (NEGATIVE); GLUCOSE, URINE (UA) NEGATIVE (NEGATIVE); KETONES,URINE (UA) NEGATIVE (NEGATIVE); LEUKOCYTE ESTERASE, URINE NEGATIVE (NEGATIVE); NITRITE,URINE NEGATIVE (NEGATIVE); OCCULT BLOOD,URINE NEGATIVE (NEGATIVE); PH,URINE 6.5 PH (5.0-7.5); PROTEIN,URINE NEGATIVE (NEGATIVE); UROBILINOGEN,URINE 0.2 (NORMAL) E.U./dL (NORMAL)
[2019-02-19 18:04] LABS: CLARITY,URINE CLEAR (CLEAR); HCG UR QUAL NEGATIVE
[2019-02-19 18:11] LABS: BASOPHILS # (AUTO) 0.2 10^3/uL (0.0-0.1); BASOPHILS % (AUTO) 1.8 %; EOSINOPHILS # (AUTO) 0.1 10^3/uL (0.0-0.7); EOSINOPHILS % (AUTO) 0.7 %; HGB - HEMOGLOBIN 12.9 g/dL (12.0-16.0); LYMPHOCYTES # (AUTO) 2.1 10^3/uL (1.5-3.5); LYMPHOCYTES % (AUTO) 21.7 %; MEAN CORPUSCULAR HGB CONC 33.2 g/dL (32.0-36.0); MEAN CORPUSCULAR VOLUME 87.5 fL (81.0-99.0); MEAN PLATELET VOLUME 10.3 fL (7.9-10.8); MONOCYTES # (AUTO) 0.5 10^3/uL (0.0-1.0); NEUTROPHILS # (AUTO) 6.9 10^3/uL (1.5-6.6); NEUTROPHILS % (AUTO) 70.8 %; PLT - PLATELET COUNT 152 10^3/uL (130-450); RED BLOOD COUNT 4.43 10^6/uL (4.20-5.40); RED CELL DISTRIBUTION WIDTH 13.4 % (12.0-15.0); WHITE BLOOD COUNT 9.7 x10^3/uL (4.8-10.8)
[2019-02-19 18:15] LABS: ALBUMIN 4.2 g/dL (3.2-5.5); ALBUMIN/GLOBULIN RATIO 1.4 (1.0-2.2); BILIRUBIN,TOTAL 0.5 mg/dL (0.2-1.0); CALCIUM 8.7 mg/dL (8.5-10.3); CREATININE 0.7 mg/dL (0.4-1.0); TOTAL PROTEIN 7.1 g/dL (6.7-8.2)
--- NOTE | 2019-02-19 18:26 | ED Physician Documentation ---
PD HPI ABD PAIN - Stated complaint Stated Complaint: ABD PX - Chief complaint Chief Complaint: Abd Pain - History obtained from History obtained from: Patient - History of Present Illness Timing - onset: Other (7 days pain RUQ radiating to back, worse after eating. Worsening. Started as an ache, now sharper. She is 1 month post .) Review of Systems Ten Systems: 10 systems reviewed and negative Constitutional: denies: Fever, Chills GI: reports: Abdominal Pain, Nausea. 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 : None HEENT: None Psych: Depression, Anxiety Musculoskeletal: Chronic back pain Derm: None - Past Surgical History Past Surgical History: No - Present Medications Home Medications: Ambulatory Orders Medication Instructions Recorded Confirmed Amox/Clav 875/125 [Augmentin] 1 each PO Q12H #20 tablet 02/19/19 FLUoxetine [PROzac] 10 02/19/19 Hydrocodone/Acetaminophen 1 - 2 each PO Q6H PRN #14 tablet 02/19/19 [Hydrocodon-Acetaminophen 5-325] - Allergies Allergies/Adverse Reactions: Allergies Allergy/AdvReac Type Severity Reaction Status Date / Time Sulfa (Sulfonamide Allergy Intermediate Hives Verified 09/13/18 19:27 Antibiotics) sulfamethoxazole Allergy Unknown Verified 09/13/18 19:27 [From ] trimethoprim [From ] Allergy Unknown Verified 02/19/19 17:37 - Living Situation Living Situation: reports: With spouse/s.o. - Social History Does the pt smoke?: No Smoking Status: Never smoker Does the pt drink ETOH?: No Does the pt have substance abuse?: No - Family History Family history: reports: Non contributory - Immunizations Immunizations are current?: Yes - POLST Patient has POLST: No PD ED PE NORMAL - Vitals Vital signs reviewed: Yes - General General: Alert and oriented X 3, No acute distress - HEENT HEENT: PERRL, EOMI - Neck Neck: Supple, no meningeal sign, No bony TTP - Cardiac Cardiac: RRR, No murmur - Respiratory Respiratory: No respiratory distress, Clear bilaterally - Extremities Extremities: No edema, No calf tenderness / cord - Neuro Neuro: Alert and oriented X 3, Normal speech - Psych Psych: Normal mood, Normal affect Results - Vitals Vitals: Vital Signs - 24 hr 02/19/19 02/19/19 17:35 20:45 Temperature 36.3 C L 36.4 C L Heart Rate 76 65 Respiratory 20 16 Rate Blood Pressure 130/76 106/64 O2 Saturation 98 99 Oxygen O2 Source Room air - Labs Labs: Laboratory Tests 02/19/19 02/19/19 02/19/19 17:50 17:53 17:53 WBC 9.7 RBC 4.43 Hgb 12.9 Hct 38.7 MCV 87.5 MCH 29.0 MCHC 33.2 RDW 13.4 Plt Count 152 MPV 10.3 Neut # (Auto) 6.9 H Lymph # (Auto) 2.1 [place] # (Auto) 0.5 Eos # (Auto) 0.1 Baso # (Auto) 0.2 H Absolute Nucleated RBC 0.00 Nucleated RBC % 0.0 Sodium 136 Potassium 3.5 Chloride 104 Carbon Dioxide 23 Anion Gap 9.0 BUN 19 Creatinine 0.7 Estimated GFR (MDRD) 102 Glucose 117 H Calcium 8.7 Total Bilirubin 0.5 AST 26 ALT 35 Alkaline Phosphatase 80 Total Protein 7.1 Albumin 4.2 Globulin 2.9 Albumin/Globulin Ratio 1.4 Lipase 32 Urine Color YELLOW Urine Clarity CLEAR Urine pH 6.5 Ur Specific [place] 1.010 Urine Protein NEGATIVE Urine Glucose (UA) NEGATIVE Urine Ketones NEGATIVE Urine Occult Blood NEGATIVE Urine Nitrite NEGATIVE Urine Bilirubin NEGATIVE Urine Urobilinogen 0.2 (NORMAL) Ur Leukocyte Esterase NEGATIVE Ur Microscopic Review NOT INDICATED Urine Culture Comments NOT INDICATED Urine HCG, Qual NEGATIVE - Rads (name of study) RUQ sono Radiology: EMP read contemporaneously (Small gallstones with gallbladder wall tenderness raising the possibility of mild cholecystitis without biliary ductal dilatation.) PD MEDICAL DECISION MAKING - ED course ED course: 23-year-old woman presents with right upper quadrant pain likely due to gallbladder etiology. Labs are reassuring. She felt better after pain medication here. I offered to call the surgeon for expedited cholecystectomy but she prefers an outpatient approach. Departure - Departure Disposition: 01 Home, Self Care Clinical Impression: Biliary colic Condition: Good Record reviewed to determine appropriate education?: Yes Instructions: ED Gallstone W Biliary Colic Follow-Up: Destin Gaxiola MD [Provider Admit Priv/Credential] - Prescriptions: Amox/Clav 875/125 [Augmentin] 1 each PO Q12H #20 tablet Hydrocodone/Acetaminophen [Hydrocodon-Acetaminophen 5-325] 1 - 2 each PO Q6H PRN #14 tablet PRN Reason: pain Comments: As discussed, eat a light diet with minimal fat and protein. Return if worse or if pain is intolerable. Call the surgeon's office tomorrow to arrange for an appointment. Also as discussed I would pump and dump for about an hour to 2 hours after taking the stronger pain medication. You can take ibuprofen without limitation to breast-feeding.
[2019-02-19] MEDS ORDERED: oxyCODONE 5 MG TABLET PO STA (18:34)
--- NOTE | 2019-02-19 20:45 | Ultrasound Report ---
Reason: RUQ pain Procedure Date: 02/19/2019 Accession Number: [id number] / [id number] Procedure: US - Abdomen Limited CPT Code: FULL RESULT: EXAM: ABDOMEN ULTRASOUND LIMITED, RUQ EXAM DATE: 02/19/2019 08:03 PM. CLINICAL HISTORY: RUQ pain. COMPARISON: None. TECHNIQUE: Real-time scanning was performed with static images obtained. FINDINGS: Liver: Liver parenchyma is mildly echogenic. No focal liver mass. 16.3 cm. Main portal vein flow: Hepatopetal. Gallbladder: There are multiple small shadowing gallstones in the gallbladder. Gallbladder wall thickness is borderline to mildly thickened at 3.3 mm. There is tenderness of the gallbladder. No pericholecystic fluid. Biliary System: CBD measures 3.4 mm. Not well seen. Other: Right kidney measures 11.5 cm in length. No hydronephrosis. IMPRESSION: 1. Small gallstones with gallbladder tenderness, raising the possibility of mild or early cholecystitis, noting a borderline to mildly thickened gallbladder wall 2. No biliary dilatation. RADIA
[2019-02-19 20:47] VITALS: BP 106/64
[2019-02-19] MEDS ORDERED: AMOX/CLAV 875 MG/125 MG TABLET PO STA (21:08)
[2019-02-19] MEDS ORDERED: HYDROcod/ACET 5/325 Prepack 4 PO STA (21:08)
== END 2019-02-19 21:21 | disposition home or self-care (01) ==
LOC: ED 17:20
DX: O99.63 Diseases of the digestive system complicating the puerperium (principal); K80.20 Calculus of gallbladder without cholecystitis without obstruction
CPT/HCPCS: 36415; 76705; 80053; 81003; 81025; 83690; 85025; 99283; 99284; A9270; 81001; 87086

== ENCOUNTER 2019-02-23 10:00 | Day surgery (SDC) | payer OTHER, MEDICAID ==
--- NOTE | 2019-02-23 10:17 | ANESTHESIA ---
Pre-Anesthesia VS, & Labs - Diagnosis cholecystitis - Procedure Laparoscopic cholecystectomy Height 5 ft 7 in Body Mass Index 34.4 - Is Patient ?: No (-HCG 02/19/19) - Lab Results Lab results reviewed: Yes Home Medications and Allergies FLUoxetine [PROzac] 10 mg PO DAILY 02/19/19 Allergies/Adverse Reactions: Allergies Allergy/AdvReac Type Severity Reaction Status Date / Time Sulfa (Sulfonamide Allergy Intermediate Hives Verified 09/13/18 19:27 Antibiotics) sulfamethoxazole Allergy Hives Verified 02/22/19 10:31 [From ] trimethoprim [From ] Allergy Hives Verified 02/22/19 10:31 Anes History & Medical History - Medical History Cardiovascular: reports: None Pulmonary: reports: None Gastrointestinal: reports: Cholelithiasis Urinary: reports: None Neuro: reports: None, Migraines Musculoskeletal: reports: Chronic back pain Endocrine/Autoimmune: reports: None Blood Disorders: reports: None Skin: reports: None Smoking Status: Never smoker Exam General: Alert, Oriented x3, Cooperative Dental: WNL Mouth Openin Fingerbreadth Neck Mobility: Normal Mallampati classification: II Thyromental Distance: 4-6 cm Respiratory: Lungs clear, Normal breath sounds, No respiratory distress, No accessory muscle use Cardiovascular: Regular rate Neurological: Normal speech Mental/Cognitive Status: Alert/Oriented X3, Normal for patient Cognitive Status: Within normal limits Plan Anesthesia Type: General Consent for Procedure(s) Verified and Reviewed: Yes Code Status: Attempt Resuscitation ASA classification: 2-Mild systemic disease Is this case an emergency?: No
[2019-02-23 10:42] LABS: HCG UR QUAL NEGATIVE
[2019-02-23] MEDS ORDERED: ceFAZolin 2 GM/50 ML 2 GM/50 ML BAG IV ONE (10:49)
[2019-02-23] MEDS ORDERED: LACTATED RINGERS 1,000 ML IV ONE ×2 (10:53→12:28)
[2019-02-23] MEDS ORDERED: BUPIVACAINE 0.25%-EPI 1:200000 PF 30 ML VIAL SUBQ ONE ×3 (10:53→11:45)
[2019-02-23] MEDS ORDERED: BUPIVACAINE 0.25%-EPI 1:200000 PF 30 ML VIAL ONE (11:10)
[2019-02-23] MEDS ORDERED: HYDROmorphone 1 MG/ML SYRINGE IVP ONE (12:30)
[2019-02-23] MEDS ORDERED: KETOROLAC 30 MG/ML VIAL IVP ONE (12:30)
[2019-02-23] MEDS ORDERED: fentaNYL 250 MCG/5 ML VIAL IVP ONE (12:30)
[2019-02-23] MEDS ORDERED: GLYCOPYRROLATE 1 MG/5 ML VIAL IVP ONE (12:30)
[2019-02-23] MEDS ORDERED: ROCURONIUM 50 MG/5 ML VIAL IVP ONE (12:30)
[2019-02-23] MEDS ORDERED: DEXAMETHASONE 4 MG/ML VIAL IVP ONE (12:30)
[2019-02-23] MEDS ORDERED: ONDANSETRON 4 MG/2 ML VIAL IVP ONE (12:30)
[2019-02-23] MEDS ORDERED: NEOSTIGMINE 1 MG/1 ML 10 ML MDV IVP ONE (12:30)
[2019-02-23] MEDS ORDERED: PROPOFOL 200 MG/20 ML VIAL IVP ONE (12:30)
[2019-02-23] MEDS ORDERED: MIDAZOLAM 2 MG/2 ML VIAL IVP ONE (12:30)
[2019-02-23] MEDS ORDERED: HYDROcod/ACETAM 5/325 MG TABLET PO PRN (12:48)
[2019-02-23] MEDS: HYDROmorphone 0.5 MG/0.5 ML SYRINGE ONE ×5 (12:48→13:15)
[2019-02-23] MEDS ORDERED: ACETAMINOPHEN 1,000 MG/100 ML 100 ML IV ONE (12:53)
[2019-02-23] MEDS ORDERED: oxyCODONE 5 MG TABLET PO PRN (12:54)
[2019-02-23] MEDS ORDERED: HYDROmorphone 0.5 MG/0.5 ML SYRINGE ONE (13:04)
[2019-02-23] MEDS ORDERED: oxyCODONE 5 MG TABLET ONE (13:40)
[2019-02-23 14:18] VITALS: BP 113/56
--- NOTE | 2019-02-23 15:32 | OPERATIVE REPORT ---
DATE OF SERVICE: 02/23/2019 Physician: Johnson Odell MD PREOPERATIVE DIAGNOSIS: Symptomatic cholelithiasis. POSTOPERATIVE DIAGNOSIS: Acute cholecystitis. OPERATIVE PROCEDURE: Laparoscopic cholecystectomy. SURGEON: Johnson Odell MD INDICATIONS FOR PROCEDURE: The patient is a 23-year-old woman who presented to the clinic complaining of symptomatic cholelithiasis with a current acute pain episode, requesting removal of her gallbladder. PROCEDURE IN DETAIL: The risks and benefits were explained to the patient and she agreed to the procedure. She was taken to the operating room and placed under general anesthesia and intubated. The abdomen was prepped and draped. Timeout was performed, and everyone in the room agreed to the procedure. We began by making a 12 mm supraumbilical incision. We carried this down into the peritoneal cavity, inserted a Agnes trocar and secured it in place. We insufflated the abdomen to 15 mmHg and identified the gallbladder, which was seen to be moderately inflamed. Three more 5 mm trocars were inserted under vision of the camera, one below the xiphoid process, and two below the right costal margin. The gallbladder was grasped and retracted towards the head. The fundus was dissected until a critical view was obtained. Bifurcation of the cystic artery was noted and both branches were doubly clipped and ligated. The cystic duct was also double clipped and ligated. The gallbladder was then removed off the liver bed using monopolar electricity. Due to the inflamed nature of the gallbladder, this portion was more difficult than normal and had more blood loss than normal. In any event, the gallbladder came out without perforation. It was placed in an Endo Catch bag and removed. The liver bed was inspected. Hemostasis was achieved. The right upper quadrant was lavaged and all four ports were removed under vision of the camera. The umbilical port site fascia was closed using 0 Vicryl and the skin of all four incisions was closed using 4-0 Monocryl and Dermabond after infusing with 15 mL of Marcaine. This terminated the procedure. The patient tolerated the procedure well. She was extubated in the operating room and taken to the recovery room in stable condition. The instrument and lap counts were correct. ESTIMATED BLOOD LOSS: 20 mL SPECIMEN: Gallbladder. COMPLICATIONS: None. PLAN: To go home later today. TD: 02/23/2019 12:38 [facility]
== END 2019-02-23 10:01 | disposition home or self-care (01) ==
LOC: SDS 10:00
PROVIDERS: ATTEND Surgery
PROC: 0FT44ZZ Resection of Gallbladder, Percutaneous Endoscopic Approach (ICD-10-PCS; principal; 2019-02-23 11:30)
DX: K81.9 Cholecystitis, unspecified (principal); K81.0 Acute cholecystitis; F32.9 Major depressive disorder, single episode, unspecified; Z79.891 Long term (current) use of opiate analgesic
CPT/HCPCS: 47562; 81025; A9270; J0131; J0690; J1170; J3010; J7120

== ENCOUNTER 2019-05-19 14:55 | Emergency (ER) | payer MEDICAID, OTHER ==
--- NOTE | 2019-05-19 15:06 | ED Physician Documentation ---
History of Present Illness - Stated complaint Stated Complaint: RT LOWER BACK PAIN, ABD PX VOMITING - Chief complaint Chief Complaint: Abd Pain - History obtained from History obtained from: Patient - History of Present Illness Timing: Prior to arrival - Additonal information Additional information: Patient is a previously 24-year-old female presenting with several hours of right flank pain that radiates towards her right lower quadrant and groin. Patient describes pain as menstrual cramp like. Patient also complains of nausea and vomiting, but no urinary changes or stool changes. Patient denies fever. Patient had vaginal about 4 months ago and has had irregular spotting, but no menstrual bleeding today. No other improving or worsening factors noted. Review of Systems Constitutional: denies: Fever GI: reports: Abdominal Pain, Nausea, Vomiting. 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 : None HEENT: Chronic vision loss Psych: Depression, Anxiety, Panic attacks Musculoskeletal: Chronic back pain Derm: None - Past Surgical History Past Surgical History: Yes General: Cholecystectomy - Present Medications Home Medications: Ambulatory Orders Medication Instructions Recorded Confirmed Amox/Clav 875/125 [Augmentin] 1 each PO Q12H #20 tablet 02/19/19 02/23/19 FLUoxetine [PROzac] 10 mg PO DAILY 02/19/19 02/23/19 Hydrocodone/Acetaminophen 1 - 2 each PO Q6H PRN #14 tablet 02/19/19 02/23/19 [Hydrocodon-Acetaminophen 5-325] Hydrocodone/Acetaminophen 1 - 2 each PO Q6H PRN #14 tablet 05/19/19 [Hydrocodon-Acetaminophen 5-325] Ondansetron Odt [Zofran] 4 mg TL Q6H PRN #10 tablet 05/19/19 Tamsulosin HCl [Flomax] 0.4 mg PO DAILY 10 Days cap.er.24h 05/19/19 - Allergies Allergies/Adverse Reactions: Allergies Allergy/AdvReac Type Severity Reaction Status Date / Time Sulfa (Sulfonamide Allergy Intermediate Hives Verified 05/19/19 14:59 Antibiotics) sulfamethoxazole Allergy Hives Verified 05/19/19 14:59 [From ] trimethoprim [From ] Allergy Hives Verified 05/19/19 14:59 - Social History Does the pt smoke?: No Smoking Status: Never smoker Does the pt drink ETOH?: No Does the pt have substance abuse?: No - Immunizations Immunizations are current?: Yes - POLST Patient has POLST: No PD ED PE NORMAL - Vitals Vital signs reviewed: Yes - General General: Alert and oriented X 3, No acute distress, Well developed/nourished - HEENT HEENT: Atraumatic, Moist mucous membranes - Neck Neck: Supple, no meningeal sign - Cardiac Cardiac: RRR, No murmur - Respiratory Respiratory: No respiratory distress, Clear bilaterally - Abdomen Abdomen: Normal bowel sounds, Soft, Non tender, Non distended - Back Back: No: No CVA TTP (Right CVA tenderness) - Derm Derm: Normal color, Warm and dry, No rash - Extremities Extremities: No deformity, No tenderness to palpate - Neuro Neuro: Alert and oriented X 3, No motor deficit, No sensory deficit - Psych Psych: Normal mood, Normal affect Results - Vitals Vitals: Vital Signs - 24 hr 05/19/19 14:56 Temperature 36.2 C L Heart Rate 83 Respiratory 18 Rate Blood Pressure 134/92 H O2 Saturation 98 Oxygen O2 Source Room air - Labs Labs: Laboratory Tests 05/19/19 05/19/19 05/19/19 15:07 15:07 16:04 WBC 14.9 H RBC 4.74 Hgb 13.7 Hct 40.8 MCV 86.1 MCH 28.9 MCHC 33.6 RDW 13.5 Plt Count 210 MPV 11.8 H Neut # (Auto) 12.9 H Lymph # (Auto) 1.1 L Gage # (Auto) 0.7 Eos # (Auto) 0.0 Baso # (Auto) 0.1 Absolute Nucleated RBC 0.00 Nucleated RBC % 0.0 Sodium Potassium Chloride Carbon Dioxide Anion Gap BUN Creatinine Estimated GFR (MDRD) Glucose Calcium Total Bilirubin AST ALT Alkaline Phosphatase Total Protein Albumin Globulin Albumin/Globulin Ratio Lipase Urine Color YELLOW Urine Clarity CLEAR Urine pH 5.5 Ur Specific Reagan >=1.030 H >=1.030 H Urine Protein NEGATIVE Urine Glucose (UA) NEGATIVE Urine Ketones NEGATIVE Urine Occult Blood NEGATIVE Urine Nitrite NEGATIVE Urine Bilirubin NEGATIVE Urine Urobilinogen 0.2 (NORMAL) Ur Leukocyte Esterase NEGATIVE Ur Microscopic Review NOT INDICATED Urine Culture Comments NOT INDICATED Urine HCG, Qual NEGATIVE 05/19/19 16:25 WBC RBC Hgb Hct MCV MCH MCHC RDW Plt Count MPV Neut # (Auto) Lymph # (Auto) Gage # (Auto) Eos # (Auto) Baso # (Auto) Absolute Nucleated RBC Nucleated RBC % Sodium 144 Potassium 3.7 Chloride 107 Carbon Dioxide 23 Anion Gap 14.0 H BUN 18 Creatinine 1.0 Estimated GFR (MDRD) 67 L Glucose 108 H Calcium 8.7 Total Bilirubin 0.7 AST 22 ALT 28 Alkaline Phosphatase 83 Total Protein 7.3 Albumin 4.3 Globulin 3.0 Albumin/Globulin Ratio 1.4 Lipase 24 Urine Color Urine Clarity Urine pH Ur Specific Reagan Urine Protein Urine Glucose (UA) Urine Ketones Urine Occult Blood Urine Nitrite Urine Bilirubin Urine Urobilinogen Ur Leukocyte Esterase Ur Microscopic Review Urine Culture Comments Urine HCG, Qual PD MEDICAL DECISION MAKING - ED course Complexity details: reviewed results, re-evaluated patient, considered differential, d/w patient, d/w family ED course: Patient presenting with right-sided flank pain that radiates to the right abdomen and groin most consistent with kidney stones. Have lower suspicion for pyelonephritis, UTI, appendicitis, or other intra-abdominal pathology particularly given patient's previous cholecystectomy. Patient started on IV fluid, as well as pain and nausea medications.Patient much more comfortable. Screening lab work obtained which did find evidence of leukocytosis, but this could be from repetitive vomiting. No acute kidney injury or other abnormality noted. Urinalysis did not reflect infection do not feel patient needs to be started on antibiotics at this time. CT abdomen/pelvis obtained and found evidence of 3 mm stone on the right without complication. At this time, feel that she is safe to discharge home with appropriate medications, supportive cares, return precautions, and follow-up. Discussed this with patient who is also comfortable with this plan. Departure - Departure Disposition: 01 Home, Self Care Clinical Impression: Kidney stones Condition: Good Instructions: ED Stone Renal W Colic Follow-Up: Morelia Castillo MD [Primary Care Provider] - Within 3 Days Jake Galaviz MD [Physician No Access] - Within 3 Days Prescriptions: Hydrocodone/Acetaminophen [Hydrocodon-Acetaminophen 5-325] 1 - 2 each PO Q6H PRN #14 tablet PRN Reason: pain Ondansetron Odt [Zofran] 4 mg TL Q6H PRN #10 tablet PRN Reason: Nausea / Vomiting Tamsulosin HCl [Flomax] 0.4 mg PO DAILY 10 Days cap.er.24h Comments: Please take Flomax as prescribed to help pass kidney stone. Please take Zofran and [place] as prescribed to relieve nausea and pain, respectively. Do not combine Tylenol, alcohol, driving with [place]. If taking [place] regularly, recommend use of stool softener or laxative to avoid constipation. If not taking [place], may use Tylenol. Please follow-up with primary care physician next 2 to 3 days and if stone does not pass, consider contacting urology. Return to ED sooner if experience worsening symptoms or you have other concerns.
[2019-05-19] MEDS ORDERED: KETOROLAC 30 MG/ML VIAL IVP STA (15:13)
[2019-05-19] MEDS ORDERED: SODIUM CHLORIDE 0.9% 1,000 ML IV ONE (15:13)
[2019-05-19] MEDS ORDERED: ONDANSETRON 4 MG/2 ML VIAL IVP STA (15:13)
[2019-05-19 15:16] LABS: BILIRUBIN,URINE NEGATIVE (NEGATIVE); GLUCOSE, URINE (UA) NEGATIVE (NEGATIVE); KETONES,URINE (UA) NEGATIVE (NEGATIVE); LEUKOCYTE ESTERASE, URINE NEGATIVE (NEGATIVE); NITRITE,URINE NEGATIVE (NEGATIVE); OCCULT BLOOD,URINE NEGATIVE (NEGATIVE); PH,URINE 5.5 PH (5.0-7.5); PROTEIN,URINE NEGATIVE (NEGATIVE); UROBILINOGEN,URINE 0.2 (NORMAL) E.U./dL (NORMAL)
[2019-05-19 15:20] LABS: CLARITY,URINE CLEAR (CLEAR); HCG UR QUAL NEGATIVE
--- NOTE | 2019-05-19 16:08 | CT Report ---
Reason: right cva tenderness with radiation Procedure Date: 05/19/2019 Accession Number: [id number] / [id number] Procedure: CT - Abdomen/Pelvis WO CPT Code: FULL RESULT: EXAM: CT ABDOMEN AND PELVIS (CT KUB) EXAM DATE: 05/19/2019 03:39 PM. CLINICAL HISTORY: Right cva tenderness with radiation. COMPARISONS: None. TECHNIQUE: Routine axial helical CT imaging was performed through the abdomen and pelvis without IV contrast. Reconstructions: Coronal and sagittal. In accordance with CT protocol optimization, one or more of the following dose reduction techniques were utilized for this exam: automated exposure control, adjustment of mA and/or KV based on patient size, or use of iterative reconstructive technique. FINDINGS: Lung Bases: Unremarkable. Right Kidney/Ureter: Mild to moderate hydroureteronephrosis extending to a 3 mm UVJ calculus (), with associated mild perinephric and periureteric fat stranding. Tiny 1 mm intrarenal calculus in the anterior interpolar region (). Left Kidney/Ureter: No stones, hydronephrosis, or hydroureter. No perinephric fat stranding. Other Solid Organs: Noncontrast images of the solid organs are grossly unremarkable. Gallbladder/Bile Ducts: Unremarkable. Peritoneal Cavity: The bowel is grossly unremarkable, without evident focal wall thickening or adjacent mesenteric fat stranding to suggest acute inflammatory process, or evidence of bowel obstruction. The appendix is normal. No free fluid, pneumoperitoneum, or marzena adenopathy. Pelvic Organs: Incidentally noted dystrophic calcification between the uterus and bladder dome (79, 6/44). Right UVJ calculus, as described above. Noncontrast images of the visualized pelvic organs are unremarkable. Vasculature: Unremarkable. Bones: No significant abnormality. Other: None. IMPRESSION: 1. 3 mm right UVJ calculus with associated mild to moderate hydroureteronephrosis. 2. Tiny 1 mm nonobstructive right intrarenal calculus. RADIA
[2019-05-19 16:11] LABS: BASOPHILS # (AUTO) 0.1 10^3/uL (0.0-0.1); BASOPHILS % (AUTO) 0.5 %; EOSINOPHILS % (AUTO) 0.1 %; HGB - HEMOGLOBIN 13.7 g/dL (12.0-16.0); LYMPHOCYTES # (AUTO) 1.1 10^3/uL (1.5-3.5); LYMPHOCYTES % (AUTO) 7.2 %; MEAN CORPUSCULAR HEMOGLOBIN 28.9 pg (27.0-31.0); MEAN CORPUSCULAR HGB CONC 33.6 g/dL (32.0-36.0); MEAN CORPUSCULAR VOLUME 86.1 fL (81.0-99.0); MEAN PLATELET VOLUME 11.8 fL (7.9-10.8); MONOCYTES # (AUTO) 0.7 10^3/uL (0.0-1.0); MONOCYTES % (AUTO) 4.6 %; NEUTROPHILS # (AUTO) 12.9 10^3/uL (1.5-6.6); NEUTROPHILS % (AUTO) 86.9 %; PLT - PLATELET COUNT 210 10^3/uL (130-450); RED BLOOD COUNT 4.74 10^6/uL (4.20-5.40); RED CELL DISTRIBUTION WIDTH 13.5 % (12.0-15.0); WHITE BLOOD COUNT 14.9 x10^3/uL (4.8-10.8)
[2019-05-19 16:44] LABS: ALBUMIN 4.3 g/dL (3.2-5.5); ALBUMIN/GLOBULIN RATIO 1.4 (1.0-2.2); BILIRUBIN,TOTAL 0.7 mg/dL (0.2-1.0); CALCIUM 8.7 mg/dL (8.5-10.3); TOTAL PROTEIN 7.3 g/dL (6.7-8.2)
[2019-05-19 17:32] VITALS: BP 134/80
== END 2019-05-19 17:32 | disposition home or self-care (01) ==
LOC: ED 14:55
DX: N13.2 Hydronephrosis with renal and ureteral calculous obstruction (principal)
CPT/HCPCS: 36415; 74176; 80053; 81001; 81003; 81025; 83690; 85025; 87086; 96361; 96374; 99284

== ENCOUNTER 2019-12-10 07:08 | Outpatient (CLI) | payer MEDICAID ==
[2019-12-10 11:59] LABS: BASOPHILS # (AUTO) 0.1 10^3/uL (0.0-0.1); BASOPHILS % (AUTO) 0.9 %; EOSINOPHILS # (AUTO) 0.1 10^3/uL (0.0-0.7); EOSINOPHILS % (AUTO) 2.2 %; HGB - HEMOGLOBIN 12.7 g/dL (12.0-16.0); LYMPHOCYTES # (AUTO) 2.1 10^3/uL (1.5-3.5); LYMPHOCYTES % (AUTO) 37.1 %; MEAN CORPUSCULAR HEMOGLOBIN 28.2 pg (27.0-31.0); MEAN CORPUSCULAR HGB CONC 32.2 g/dL (32.0-36.0); MEAN CORPUSCULAR VOLUME 87.8 fL (81.0-99.0); MEAN PLATELET VOLUME 11.8 fL (7.9-10.8); MONOCYTES # (AUTO) 0.4 10^3/uL (0.0-1.0); MONOCYTES % (AUTO) 6.8 %; NEUTROPHILS # (AUTO) 2.9 10^3/uL (1.5-6.6); NEUTROPHILS % (AUTO) 52.6 %; PLT - PLATELET COUNT 225 10^3/uL (130-450); RED CELL DISTRIBUTION WIDTH 13.8 % (12.0-15.0); WHITE BLOOD COUNT 5.6 x10^3/uL (4.8-10.8)
[2019-12-10 12:24] LABS: ALBUMIN 4.1 g/dL (3.2-5.5); ALBUMIN/GLOBULIN RATIO 1.6 (1.0-2.2); ALKALINE PHOSPHATASE 58 IU/L (42-121); ALT ALANINE AMINOTRANSFERASE 19 IU/L (10-60); AST ASPARTATE AMINOTRANSFERASE 16 IU/L (10-42); BILIRUBIN,TOTAL 0.9 mg/dL (0.2-1.0); BUN - BLOOD UREA NITROGEN 11 mg/dL (6-20); CALCIUM 8.6 mg/dL (8.5-10.3); CARBON DIOXIDE - CO2 26 mmol/L (21-32); CHLORIDE 107 mmol/L (101-111); CHOL/HDL RATIO 2.7 (<4.4); CHOLESTEROL 122 mg/dL; CREATININE 0.6 mg/dL (0.4-1.0); GFR - MDRD 121 (>89); GLUCOSE 81 mg/dL (70-100); HDL CHOLESTEROL 46 mg/dL; SODIUM 140 mmol/L (135-145); TOTAL PROTEIN 6.7 g/dL (6.7-8.2)
== END 2019-12-10 23:59 | disposition home or self-care (01) ==
LOC: LAB.WCP 07:08
PROVIDERS: ATTEND Physician Assistant Medical
DX: Z00.00 Encounter for general adult medical examination without abnormal findings (principal); F32.9 Major depressive disorder, single episode, unspecified; F41.9 Anxiety disorder, unspecified
CPT/HCPCS: 36415; 80053; 80061; 82306; 82607; 83721; 84443; 85025

== ENCOUNTER 2020-05-18 07:17 | Outpatient (CLI) | payer MEDICAID ==
--- NOTE | 2020-05-18 11:02 | Ultrasound Report ---
PROCEDURE: OB First Trimester INDICATIONS: POSITIVE TEST OUTSIDE/PRIOR DATING DATA: Last menstrual period (LMP): 04/03/2020. LMP-based estimated date of delivery (KILO): 01/08/2021. First dating scan (date and location): 05/18/2020. Estimated date of delivery (KILO) from first dating scan: 01/08/2021. TECHNIQUE: Real-time scanning was performed of the fetus and maternal pelvic organs, with image documentation. COMPARISON: None FINDINGS: Embryo: There is an intrauterine gestational sac seen, with a pole present, which measures 0.6 cm, which corresponds to an estimated gestational age of 6 weeks 3 days. cardiac activity is s een, with a measured heart rate of 118 bpm. Moderate to prominent perigestational/subchorionic hemo rrhage can be seen, which measures 4.5 x 0.9 x 1 cm. Measurement variability in dating: +/- 4 weeks by LMP, +/- 7 days by mean sac diameter (use before 6 weeks gestation if crown-rump length not able to be measured), +/- 5 days by crown-rump length (6-12 weeks gestation). Maternal organs: Ovaries are unremarkable, with a left ovarian corpus luteum cyst that measures up t o 2.3 cm.. Limited images through the kidneys demonstrate no hydronephrosis. IMPRESSION: Moderate to prominent subchorionic hemorrhage. Close clinical follow-up with serial beta hCG measurements are recommended, as clinically appropriate . Single live intrauterine . No significant discrepancy is found between the estimated gestational age based upon these images and the estimated gestational age based upon the given date of the last menstrual period. Reviewed by: Luis Ball MD on 05/18/2020 10:00 AM DE[facility] Approved by: Luis Ball MD on 05/18/2020 10:00 AM DELL Station ID: [id number]
== END 2020-05-18 07:18 | disposition home or self-care (01) ==
LOC: DI 07:17
PROVIDERS: ATTEND Obstetrics & Gynecology
DX: O41.8X10 Other specified disorders of amniotic fluid and membranes, first trimester, not applicable or unspecified (principal); Z3A.01 Less than 8 weeks gestation of pregnancy
CPT/HCPCS: 76801

== ENCOUNTER 2020-06-02 09:56 | Outpatient (CLI) | payer MEDICAID ==
[2020-06-02 15:58] LABS: BILIRUBIN,URINE NEGATIVE (NEGATIVE); GLUCOSE, URINE (UA) NEGATIVE (NEGATIVE); KETONES,URINE (UA) NEGATIVE (NEGATIVE); LEUKOCYTE ESTERASE, URINE NEGATIVE (NEGATIVE); NITRITE,URINE NEGATIVE (NEGATIVE); OCCULT BLOOD,URINE NEGATIVE (NEGATIVE); PROTEIN,URINE NEGATIVE (NEGATIVE); UROBILINOGEN,URINE 0.2 (NORMAL) E.U./dL (NORMAL)
[2020-06-02 16:10] LABS: CLARITY,URINE CLEAR (CLEAR)
[2020-06-02 21:46] LABS: TRICHOMONAS VAGINALIS DNA NEGATIVE (NEGATIVE)
== END 2020-06-02 23:59 | disposition home or self-care (01) ==
LOC: LAB.R 09:56
PROVIDERS: ATTEND Obstetrics & Gynecology
DX: Z36.89 Encounter for other specified antenatal screening (principal); Z11.3 Encounter for screening for infections with a predominantly sexual mode of transmission
CPT/HCPCS: 81001; 81003; 87086; 87491; 87591; 87661

== ENCOUNTER 2020-06-16 16:10 | Outpatient (CLI) | payer MEDICAID ==
[2020-06-16 16:41] LABS: BASOPHILS # (AUTO) 0.1 10^3/uL (0.0-0.1); BASOPHILS % (AUTO) 0.6 %; EOSINOPHILS % (AUTO) 0.3 %; HGB - HEMOGLOBIN 12.4 g/dL (12.0-16.0); LYMPHOCYTES # (AUTO) 2.3 10^3/uL (1.5-3.5); MEAN CORPUSCULAR HEMOGLOBIN 29.9 pg (27.0-31.0); MEAN CORPUSCULAR HGB CONC 34.3 g/dL (32.0-36.0); MEAN PLATELET VOLUME 11.3 fL (7.9-10.8); MONOCYTES # (AUTO) 0.6 10^3/uL (0.0-1.0); MONOCYTES % (AUTO) 6.4 %; NEUTROPHILS # (AUTO) 5.6 10^3/uL (1.5-6.6); NEUTROPHILS % (AUTO) 65.4 %; PLT - PLATELET COUNT 202 10^3/uL (130-450); RED BLOOD COUNT 4.15 10^6/uL (4.20-5.40); RED CELL DISTRIBUTION WIDTH 13.7 % (12.0-15.0); WHITE BLOOD COUNT 8.6 x10^3/uL (4.8-10.8)
[2020-06-17 12:05] LABS: HEPATITIS C ANTIBODY NON-REACTIVE (NON-REACTIVE)
[2020-06-17 12:20] LABS: HIV AG/AB 4TH GEN NON-REACTIVE (NON-REACTIVE)
[2020-06-17 13:34] LABS: HEPATITIS B SURFACE ANTIGEN NON-REACTIVE (NON-REACTIVE)
== END 2020-06-16 16:11 | disposition home or self-care (01) ==
LOC: LAB 16:10
PROVIDERS: ATTEND Obstetrics & Gynecology
DX: Z34.80 Encounter for supervision of other normal pregnancy, unspecified trimester (principal); Z36.89 Encounter for other specified antenatal screening
CPT/HCPCS: 36415; 81599; 85025; 86592; 86762; 86803; 86850; 86900; 86901; 87340; 87389

== ENCOUNTER 2020-08-04 09:16 | Outpatient (CLI) | payer MEDICAID | END 2020-08-04 09:17 | disposition home or self-care (01) | LOC: LAB 09:16 | PROVIDERS: ATTEND Obstetrics & Gynecology | DX: Z34.80 Encounter for supervision of other normal pregnancy, unspecified trimester (principal) | CPT/HCPCS: 36415; 81511; 81599 ==

== ENCOUNTER 2020-08-06 08:43 | Outpatient (CLI) | payer MEDICAID | END 2020-08-06 08:44 | disposition home or self-care (01) | LOC: LAB 08:43 | PROVIDERS: ATTEND Nurse Practitioner Obstetrics & Gynecology | DX: Z36.89 Encounter for other specified antenatal screening (principal) | CPT/HCPCS: 36415; 82950 ==

== ENCOUNTER 2020-08-16 07:50 | Outpatient (CLI) | payer MEDICAID ==
--- NOTE | 2020-08-16 12:07 | Ultrasound Report ---
PROCEDURE: OB Detailed Eval INDICATIONS: ENCOUNTER FOR OTHER SPECIFIED SCREENING OUTSIDE/PRIOR DATING DATA: Last menstrual period (LMP): 04/03/2020. LMP-based estimated date of delivery (KILO): 01/08/2021. First dating scan (date and location): 05/18/2020. Estimated date of delivery (KILO) from first dating scan: 01/08/2021. TECHNIQUE: Real-time scanning was performed of the fetus, with image documentation and biometric measurements. Endovaginal scanning: Not done COMPARISON: 05/18/2020 FINDINGS: General: A single live intrauterine gestation is present. Presentation: Variable Placenta: Placental position is posterior, without previa. Amniotic fluid index: 12.9 cm, 38th percentile for gestational age. heart rate: 143 beats per minute. Maternal cervical canal: 5.2 cm long; normal length is 2.5 cm or more. biometrics: Biparietal diameter: 4.4 cm equals 19 weeks 2 days Head circumference: 17.2 cm equals 19 weeks 5 days Abdominal circumference: 15.5 cm equals 20 weeks 5 days Femur length: 3.3 cm equals 20 weeks 1 day Estimated gestational age from initial scan: 19 weeks 2 days Composite gestational age from present scan: 20 weeks 0 days Estimated weight and percentile: 347 g, 95th percentile Measurement variability in biometric dating: +/- 10 days from 12-20 weeks gestation, +/- 2 weeks from 20-30 weeks gestation, +/- 3 weeks at 30 weeks gestation or later. Anatomic survey: Neuro: Ventricles are normal at less than 10 mm. Cisterna magna is normal at 3-11 mm. Cerebellum i s normal in size and morphology. Nuchal skin fold: Normal at less than 6 mm between 14 and 20 weeks gestational age. Face: Not well seen. Spine: Not well seen. Heart: Not well seen Diaphragm: Diaphragm is intact. Stomach: Left-sided stomach is present. Kidneys: No hydronephrosis. Normal is less than 5 mm in 2nd trimester, less than 7 mm in 3rd trimester. Cord: 3 vessel cord has orthotopic insertion. Bladder: Normal in size. Extremities: All 4 extremities are visualized. This study is limited by maternal body habitus. IMPRESSION: Normal interval growth compared to the prior ultrasound examination. No anatomic abnormalities are identified. However, the face, spine, and heart are not well seen . Please consider a follow-up OB ultrasound an approximate 4 weeks for further evaluation. Reviewed by: Luis Ball MD on 08/16/2020 11:06 AM DE[facility] Approved by: Luis Ball MD on 08/16/2020 11:06 AM DE[facility] Station ID: [id number]
== END 2020-08-16 07:51 | disposition home or self-care (01) ==
LOC: DI 07:50
PROVIDERS: ATTEND Nurse Practitioner Obstetrics & Gynecology
DX: Z36.89 Encounter for other specified antenatal screening (principal)
CPT/HCPCS: 76811

== ENCOUNTER 2020-09-21 09:11 | Outpatient (CLI) | payer MEDICAID ==
--- NOTE | 2020-09-22 17:45 | Ultrasound Report ---
PROCEDURE: OB F/U or Repeat INDICATIONS: SCREENINF, COMPLETION OF FAS OUTSIDE/PRIOR DATING DATA: Last menstrual period (LMP): 04/03/2020. LMP-based estimated date of delivery (KILO): 01/08/2021. First dating scan (date and location): 11/18/2019. Estimated date of delivery (KILO) from first dating scan: 01/08/2021. TECHNIQUE: Real-time scanning was performed of the fetus, with image documentation and biometric measurements. Endovaginal scanning: Not performed. COMPARISON: OB ultrasound 08/16/2020 FINDINGS: General: A single living intrauterine gestation is present. Presentation: Vertex Placenta: Placental position is posterior, without previa. Amniotic fluid index: 15.1 cm, 54th percentile for gestational age. heart rate: 127 beats per minute. Maternal cervical canal: 4.6 cm long; normal length is 2.5 cm or more. biometrics: Not performed. Estimated gestational age from initial scan: 24 weeks 3 days. anatomy: Face: Coronal view demonstrates symmetric orbits. The upper lip and nose appear normal. Spine: The spine is visualized and appears intact. The skin overlying the cervical and lumbar s pine is intact. Heart: An echogenic focus is noted in the left ventricle. 4 chambered view demonstrates symmetric car diac chambers with normal axis. The heart is on the same to the distal stomach. LVOT and RVOT views a ppear normal. Other: Not applicable. IMPRESSION: 1. Single live intrauterine . 2. Echogenic intracardiac focus is seen in the left ventricle. In isolation, findings may represent a normal variant, but correlation with clinical risk factors for aneuploidy/trisomy 21 is recommended . Otherwise normal appearance of the heart. 3. face and spine appear normal. Reviewed by: Ty King MD on 09/22/2020 5:44 PM PST Approved by: Ty King MD on 09/22/2020 5:44 PM PST Station ID: [id number]
== END 2020-09-21 09:12 | disposition home or self-care (01) ==
LOC: DI 09:11
PROVIDERS: ATTEND Nurse Practitioner Obstetrics & Gynecology
DX: Z36.89 Encounter for other specified antenatal screening (principal); O35.8XX0 Maternal care for other (suspected) fetal abnormality and damage, not applicable or unspecified; Z3A.24 24 weeks gestation of pregnancy
CPT/HCPCS: 76816

== ENCOUNTER 2020-10-14 08:00 | Outpatient (CLI) | payer MEDICAID ==
[2020-10-14 13:45] LABS: HGB - HEMOGLOBIN 12.2 g/dL (12.0-16.0); MEAN CORPUSCULAR HEMOGLOBIN 29.8 pg (27.0-31.0); MEAN CORPUSCULAR VOLUME 92.9 fL (81.0-99.0); MEAN PLATELET VOLUME 11.6 fL (7.9-10.8); RED BLOOD COUNT 4.1 10^6/uL (4.20-5.40); RED CELL DISTRIBUTION WIDTH 13.7 % (12.0-15.0); WHITE BLOOD COUNT 8.1 x10^3/uL (4.8-10.8)
== END 2020-10-14 08:01 | disposition home or self-care (01) ==
LOC: LAB.WCP 08:00
PROVIDERS: ATTEND Obstetrics & Gynecology
DX: Z36.2 Encounter for other antenatal screening follow-up (principal)
CPT/HCPCS: 36415; 82950; 85027; 86787

== ENCOUNTER 2020-11-09 08:42 | Outpatient (CLI) | payer MEDICAID ==
--- NOTE | 2020-11-09 12:04 | Ultrasound Report ---
PROCEDURE: OB F/U or Repeat INDICATIONS: LARGE FOR GESTATION AGE FETUS OUTSIDE/PRIOR DATING DATA: Last menstrual period (LMP): 04/03/2020. LMP-based estimated date of delivery (KILO): 01/08/2021. First dating scan (date and location): 05/18/2020. Estimated date of delivery (KILO) from first dating scan: 01/08/2021. TECHNIQUE: Real-time scanning was performed of the fetus, with image documentation and biometric measurements. Endovaginal scanning: Not performed. COMPARISON: None. FINDINGS: General: A single living intrauterine gestation is present. Presentation: Cephalic Placenta: Placental position is posterior, without previa. Amniotic fluid index: 12.9 cm, normal for gestational age. Largest pocket 4 cm. heart rate: 135 beats per minute. Maternal cervical canal: 6 cm long; normal length is 2.5 cm or more. biometrics: Biparietal diameter: 7.6 cm, 30 weeks 4 days Head circumference: 29.3 cm, 32 weeks 2 days Abdominal circumference: 28.1 cm, 32 weeks 1 day Femur length: 6.1 cm, 31 weeks 6 days Estimated gestational age from initial scan: 31 weeks 3 days. Composite gestational age from present scan: 31 weeks 6 days. Estimated weight and percentile: 1869 g, 56th percentile Measurement variability in biometric dating: +/- 10 days from 12-20 weeks gestation, +/- 2 weeks from 20-30 weeks gestation, +/- 3 weeks at 30 weeks gestation or more. Umbilical artery S/D ratio: 3.0, 2.5. Preserved diastolic flow. IMPRESSION: 1. Page living intrauterine at 31 weeks 6 days based on today's ultrasound. This is co ncordant with the prior ultrasound dating. Fetus is in the 56th percentile for weight. 2. Normal placenta and amniotic fluid. 3. Umbilical artery Doppler is within normal limits. Reviewed by: hTong Kennedy MD on 11/09/2020 11:03 AM [facility] Approved by: Thong Kennedy MD on 11/09/2020 11:03 AM [facility] Station ID: [id number]
== END 2020-11-09 08:43 | disposition home or self-care (01) ==
LOC: DI 08:42
PROVIDERS: ATTEND Obstetrics & Gynecology
DX: O36.63X0 Maternal care for excessive fetal growth, third trimester, not applicable or unspecified (principal); Z3A.31 31 weeks gestation of pregnancy

== ENCOUNTER 2020-12-16 08:00 | Outpatient (CLI) | payer MEDICAID | END 2020-12-16 23:59 | disposition home or self-care (01) | LOC: LAB.R 08:00 | PROVIDERS: ATTEND Obstetrics & Gynecology | DX: Z36.85 Encounter for antenatal screening for Streptococcus B (principal) | CPT/HCPCS: 87797 ==

== ENCOUNTER 2020-12-29 07:20 | Inpatient (IN) | payer MEDICAID ==
[2020-12-29] MEDS ORDERED: OXYTOCIN 10 UNIT/ML VIAL IM PRN (09:24)
[2020-12-29] MEDS ORDERED: METOCLOPRAMIDE 10 MG/2 ML VIAL IVP PRN (09:24)
[2020-12-29] MEDS ORDERED: miSOPROStoL 200 MCG TABLET BC PRN (09:24)
[2020-12-29] MEDS ORDERED: OXYTOCIN/SODIUM CHLORIDE 500 ML IV PRN (09:24)
[2020-12-29] MEDS ORDERED: ONDANSETRON 4 MG/2 ML VIAL IVP PRN (09:24)
[2020-12-29] MEDS ORDERED: SODIUM CHLORIDE FLUSH 0.9% 10 ML SYRINGE IVP PRN (09:24)
[2020-12-29] MEDS ORDERED: TRANEXAMIC ACID IN NACL 1,000 MG/100 ML BAG IV PRN (09:24)
[2020-12-29] MEDS ORDERED: fentaNYL 100 MCG/2 ML VIAL IVP PRN (09:24)
[2020-12-29] MEDS ORDERED: LIDOCAINE-MPF 1% 30 ML VIAL ID PRN (09:24)
[2020-12-29] MEDS ORDERED: METHYLERGONOVINE 0.2 MG/ML VIAL IM PRN (09:24)
[2020-12-29] MEDS ORDERED: CARBOPROST TROMETHAMINE 250 MCG/ML AMP IM PRN (09:24)
[2020-12-29] MEDS ORDERED: TERBUTALINE 1 MG/ML VIAL SUBQ SCH (10:00)
[2020-12-29] MEDS ORDERED: ACETAMINOPHEN 325 MG TABLET PO SCH (10:00)
[2020-12-29] MEDS ORDERED: LACTATED RINGERS 1,000 ML IV SCH ×2 (10:00→16:00)
[2020-12-29] MEDS ORDERED: AMPICILLIN 2 GM in SODIUM CHLORIDE 0.9% MINIBAG 100 ML IV ONE (10:00)
[2020-12-29 11:17] LABS: BASOPHILS # (AUTO) 0.1 10^3/uL (0.0-0.1); BASOPHILS % (AUTO) 0.5 %; EOSINOPHILS % (AUTO) 0.1 %; HCT - HEMATOCRIT 40.6 % (37.0-47.0); HGB - HEMOGLOBIN 13.4 g/dL (12.0-16.0); LYMPHOCYTES # (AUTO) 1.5 10^3/uL (1.5-3.5); LYMPHOCYTES % (AUTO) 15.2 %; MEAN CORPUSCULAR HEMOGLOBIN 29.8 pg (27.0-31.0); MEAN CORPUSCULAR VOLUME 90.4 fL (81.0-99.0); MEAN PLATELET VOLUME 12.2 fL (7.9-10.8); MONOCYTES # (AUTO) 0.8 10^3/uL (0.0-1.0); MONOCYTES % (AUTO) 7.7 %; NEUTROPHILS # (AUTO) 7.5 10^3/uL (1.5-6.6); NEUTROPHILS % (AUTO) 76.1 %; PLT - PLATELET COUNT 190 10^3/uL (130-450); RED BLOOD COUNT 4.49 10^6/uL (4.20-5.40); RED CELL DISTRIBUTION WIDTH 14.2 % (12.0-15.0); WHITE BLOOD COUNT 9.9 x10^3/uL (4.8-10.8)
--- NOTE | 2020-12-29 12:26 | ANESTHESIA ---
Pre-Anesthesia VS, & Labs - Diagnosis active labor - Procedure vaginal delivery Vital Signs: Temp Pulse Resp BP Pulse Ox 37.0 C 85 16 127/80 100 12/29/20 07:32 12/29/20 07:32 12/29/20 07:32 12/29/20 07:32 12/29/20 07:32 Height: 5 ft 7 in Weight (kg): 109.316 kg Body Mass Index: 37.7 BMI Classification: Obese - NPO Other (labor) - Is Patient ?: Yes - Lab Results Current Lab Results: Laboratory Tests 12/29/20 11:00: WBC 9.9, RBC 4.49, Hgb 13.4, Hct 40.6, MCV 90.4, MCH 29.8, MCHC 33.0, RDW 14.2, Plt Count 190, MPV 12.2 H, Neut # (Auto) 7.5 H, Lymph # (Auto) 1.5, [place] # (Auto) 0.8, Eos # (Auto) 0.0, Baso # (Auto) 0.1, Absolute Nucleated RBC 0.00, Nucleated RBC % 0.0 12/29/20 11:00: Blood Type A POSITIVE, Antibody Screen NEGATIVE Fish Bones: 12/29/20 11:00 Home Medications and Allergies Active Medications Acetaminophen (Acetaminophen 325 Mg Tablet) 650 mg PO Q6H [facility] Last Admin: 12/29/20 10:51 Dose: 650 mg Documented by: Carboprost Tromethamine (Carboprost Tromethamine 250 Mcg/Ml Amp) 250 mcg IM Q15M PRN PRN Reason: Step 4: Hemorrhage protocol Stop: 01/03/21 09:25 Fentanyl (Fentanyl 100 Mcg/2 Ml Vial) 50 mcg IVP Q1H PRN PRN Reason: PAIN Lactated Ringer's (Lr) 1,000 mls @ 150 mls/hr IV .Q6H40M [facility] Last Infusion: 12/29/20 11:25 Dose: 0 mls/hr Documented by: Oxytocin/Sodium Chloride (Pitocin/Sodium Chloride) 500 mls @ 999 mls/hr IV PRN PRN; Protocol PRN Reason: POST- HEMORR PREVENTION Stop: 01/03/21 09:25 Tranexamic Acid (Tranexamic 1,000 Mg/100ml-Nacl) 1,000 mg in 100 mls @ 600 mls/hr IV .ONCE PRN PRN Reason: EBL >1200mL and within 3hr Stop: 01/03/21 09:25 Ampicillin Sodium 1 gm/ Sodium (Chloride) 100 mls @ 200 mls/hr IV Q4H [facility]IK Lidocaine HCl (Lidocaine-Mpf 1% 30 Ml Vial) 30 ml ID .ONCE PRN PRN Reason: PERINEAL REPAIR Stop: 01/03/21 09:25 Methylergonovine Maleate (Methylergonovine 0.2 Mg/Ml Vial) 0.2 mg IM .ONCE PRN PRN Reason: Step 2: Hemorrhage protocol Stop: 01/03/21 09:25 Metoclopramide HCl (Metoclopramide 10 Mg/2 Ml Vial) 10 mg IVP Q6H PRN PRN Reason: Nausea / Vomiting Misoprostol (Misoprostol 200 Mcg Tablet) 800 mcg BC .ONCE PRN PRN Reason: Step 3: Hemorrhage protocol Stop: 01/03/21 09:25 Ondansetron HCl (Ondansetron 4 Mg/2 Ml Vial) 4 mg IVP Q4H PRN PRN Reason: Nausea / Vomiting Oxytocin (Oxytocin 10 Unit/Ml Vial) 10 unit IM .ONCE PRN PRN Reason: Step one: If no IV access Stop: 01/03/21 09:25 Sodium Chloride (Sodium Chloride Flush 0.9% 10 Ml Syringe) 10 ml IVP PRN PRN PRN Reason: NEEDED PER PROVIDER ORDERS Sodium Chloride (Sodium Chloride Flush 0.9% 10 Ml Syringe) 10 ml IVP 0100,0900,1700 RIK Terbutaline Sulfate (Terbutaline 1 Mg/Ml Vial) 0.25 mg SUBQ Q1H RIK FLUoxetine [PROzac] 10 mg PO DAILY 02/19/19 PNV and Vit B Allergies/Adverse Reactions: Allergies Allergy/AdvReac Type Severity Reaction Status Date / Time Sulfa (Sulfonamide Allergy Intermediate Hives Verified 05/19/19 14:59 Antibiotics) sulfamethoxazole Allergy Hives Verified 05/19/19 14:59 [From ] trimethoprim [From ] Allergy Hives Verified 05/19/19 14:59 Anes History & Medical History - Anesthetic History Anesthesia Complications: reports: No previous complications - Medical History Cardiovascular: reports: None Pulmonary: reports: None Gastrointestinal: reports: GERD (during ) Urinary: reports: None Neuro: reports: Migraines Musculoskeletal: reports: Chronic back pain Endocrine/Autoimmune: reports: None Blood Disorders: reports: None Skin: reports: None Smoking Status: Never smoker Psychosocial: reports: No issues indicated History of Cancer?: No - Surgical History General: reports: Cholecystectomy Exam General: Alert, Oriented x3, Cooperative Dental: WNL Mouth Openin Fingerbreadth Neck Mobility: Normal Mallampati classification: II Thyromental Distance: 4-6 cm Mental/Cognitive Status: Alert/Oriented X3, Normal for patient Plan Anesthesia Type: Epidural Consent for Procedure(s) Verified and Reviewed: Yes Code Status: Attempt Resuscitation ASA classification: 2-Mild systemic disease Is this case an emergency?: No
[2020-12-29] MEDS ORDERED: NALBUPHINE 10 MG/ML AMP IVP PRN (12:27)
[2020-12-29] MEDS ORDERED: ROPIVACAINE 0.2% 200 MG/100 ML BAG EP PRN (12:27)
[2020-12-29] MEDS ORDERED: NALOXONE 0.4 MG/ML VIAL IVP PRN (12:27)
[2020-12-29] MEDS ORDERED: ePHEDrine 50 MG/ML VIAL IVP PRN (12:27)
[2020-12-29] MEDS ORDERED: ROPIVACAINE 0.2% 200 MG/100 ML BAG EP ONE (12:33)
[2020-12-29] MEDS ORDERED: AMPICILLIN 1 GM in SODIUM CHLORIDE 0.9% MINIBAG 100 ML IV SCH (14:00)
[2020-12-29] MEDS ORDERED: ONDANSETRON ODT 4 MG TABLET TL PRN (15:09)
[2020-12-29] MEDS ORDERED: CALCIUM CARBONATE CHEW 500 MG TABLET PO PRN (15:09)
--- NOTE | 2020-12-29 15:15 | DELIVERY NOTE ---
Delivery Note - Labor Labor: positive: Spontaneous, Augmented by oxytocin - Delivery Method Delivery Method: positive: Spontaneous vaginal delivery - Presentation Presentation: positive: Vertex, Compound - Nuchal Cord Nuchal Cord: positive: None - Anesthetic Anesthetic Type: - Amniotic Fluid Description Amniotic Fluid Description: positive: Clear, Bloody - Laceration Laceration: positive: 2nd degree, Perineal - Suture Suture Type: positive: Vicryl Suture Size: positive: 2-0, 3-0 - Delivery Outcome Delivery Outcome: positive: Livebirth - [place]: positive: Placed in direct skin contact with mother, Stimulated, Warmed, [place] used sex: positive: Male - Cord Cord: positive: 3 vessels - Placenta Placenta: positive: Intact, Expressed - Estimated Blood Loss Estimated Blood Loss (in cc): 300 (in total throughout delivery) - Delivery Comments (Free Text/Narrative) Delivery Comments (Free Text/Narrative): Patient is a 25 yo at 38+4 wga who presented in active labor. STAGE I: Initial SVE was 1/70/high. She walked for one hour and was then 4 cm dilated. She was admitted in active labor at 9:15 am. GBS positive and received a second dose of ampicillin 10 minutes prior to delivery. Epidural for pain management. Spontaneous rupture of membranes accompanied with greater than average vaginal bleeding. Patient was assessed at time of rupture and was noted to be complete. Cat I tracing throughout stage I labor. STAGE II: Patient pushed well over 59 minutes to deliver a viable male infant from marilyn chioma/compound presentation. Cat II tracing in second stage. Received second stage pitocin to max dose of 1 mU/min. delivered from [place] presentation with the left shoulder anterior, with a hand presentation at the level of the 's cheek. Anterior shoulder delivered without difficulty. was vigorous at time of delivery and cried once head and shoulders were delivered. delivered to maternal chest. Cord clamping was delayed until cord pulsations had ceased. Cord was then clamped x2 and cut. No nuchal cord. Weight and Apgars pending. STAGE III: Placenta delivered at 14:36 after manual expression and gentle downward tension on the umbilical cord. It was examined and found to be intact. Perineum was examined and was found to have a deep 2nd degree midline laceration that reached to the anal verge. Rectal exam was performed before and after repair. Anal sphincter was intact but was reinforced with interrupted figure of 8 sutures using 2-0 Vicryl. The remained of the laceration was repaired in the usual sterile fashion in layers with traditional crown stitch using 3-0 Vicryl. Good hemostasis was noted. Rectal exam indicated no suture was present in the rectum. Total EBL, including bloody show prior to delivery was estimated to be 300 mL. Procedure was well tolerated and without complication.
[2020-12-29] MEDS: ACETAMINOPHEN 500 MG TABLET PO PRN (16:31)
[2020-12-29] MEDS: IBUPROFEN 600 MG TABLET PO PRN ×2 (16:31→22:02)
[2020-12-29] MEDS ORDERED: SODIUM CHLORIDE FLUSH 0.9% 10 ML SYRINGE IVP SCH (17:00)
[2020-12-29] MEDS: DOCUSATE SODIUM 100 MG CAPSULE PO PRN (20:34)
[2020-12-30] MEDS: ACETAMINOPHEN 500 MG TABLET PO PRN ×2 (00:03→07:58)
[2020-12-30] MEDS: IBUPROFEN 600 MG TABLET PO PRN ×2 (04:23→10:10)
[2020-12-30] MEDS: DOCUSATE SODIUM 100 MG CAPSULE PO PRN (07:59)
--- NOTE | 2020-12-30 12:16 | Discharge Plan ---
Discharge Plan Problem Reviewed?: Yes Disposition: Home, Self Care Diet: Regular Activity Restrictions: Additional Comments (Call for: -Fever greater than 100.5 -Pain that does not improve with pain medication -Heavy bleeding in which you are soaking a pad an hour for 2 hours in a row) Shower Restrictions: Yes (No tub baths or hot tubs for 4 weeks) Additional Instructions or Follow Up instructions: Ibuprofen 600 mg by mouth every 6 hours as needed for pain Acetaminophen 500-1000 mg by mouth every 8 hours as needed for pain Docusate 100-200 mg by mouth twice a day as needed for constipation No Smoking: If you smoke, Please STOP! Call for help. Follow-up with: Cary Queen MD [Provider Admit Priv/Credential] -
[2020-12-30 15:47] VITALS: BP 132/74
--- NOTE | 2020-12-30 16:06 | Labor Flowsheet ---
Labor Flowsheet Datetime Report Generated by CPN: 12/30/2020 16:06 Datetime: 12/30/2020 07:42 VITAL SIGNS NBP Sys/Jody/Mean (mmHg): 129 : 77 : 88 Pulse: 77 Datetime: 12/29/2020 14:45 Membranes Ruptured Date/Time: 12/29/2020 13:25 LaborFlag: Labor Datetime: 12/29/2020 14:36 Stage 2 Comments: placenta 1436 Datetime: 12/29/2020 14:29 ASSESSMENT A Monitor Mode: [employer] Interventions for FHR: Ultrasound Adjusted FHR Baseline Rate : 120 Variability: Moderate 6-25 bpm Accelerations: None Decelerations: Variable; Prolonged Category: Category II Comments: RN hand holding US monitor with pushing. Difficult to maintain FHR duing pushing efforts . of a vialbe male infant with apgars of 9/9 Oxygen Method: Room Air Datetime: 12/29/2020 14:15 UTERINE ACTIVITY Monitor Mode: Palpation Frequency (min): 2-3 Quality: Strong Duration (sec): 70-90 Pattern: Normal: <= 5 Contractions in 10 Minutes Resting Tone (Palpate): Relaxed Datetime: 12/29/2020 14:01 Contraction Comments: Pushing Datetime: 12/29/2020 13:56 Provider Notified (Name): Dr. Henry Communication Comments: Sports Book Writer notified that patient is pushing and he needs to be present fo r delivery Datetime: 12/29/2020 13:30 Actions for Decelerations: Side to Side; Hands and Knees; IV Bolus; Sterile Vaginal Exam; Pro vider Notified VAGINAL EXAM Dilatation (cm): 10.0 Effacement (%): 100 Station: 0 Exam by: Dr Queen Vaginal Bleeding: Moderate Cervix, Consistency: Soft Cervix, Position: Anterior STAGE 2 Pushing: Coached on Pushing Pushing Position: Pushing with Contractions Pushing Progress: Descent with Pushing COMMUNICATION Communication: RN at Bedside; Provider at Bedside Datetime: 12/29/2020 13:28 Patient Position/Activity: Left Lateral Datetime: 12/29/2020 13:25 Membrane Status: Ruptured Membranes Rupture Method: Spontaneous Amniotic Fluid Color: Bloody Amniotic Fluid Amount: Small Amniotic Fluid Odor: Normal Membrane Comments: Blood with clots Datetime: 12/29/2020 13:16 Anesthesia Level Check: T9 Datetime: 12/29/2020 13:02 Pain Coping: Talking Through Contractions Pain Assessment Comments: mild headache, no pain with contractions Comfort Measures: Breathing/Relaxation; Family Support Datetime: 12/29/2020 13:00 Vaginal Exam Comments: baby feels posterior, head asynclitic I/O Interventions: Lopes Cath Inserted Datetime: 12/29/2020 12:48 Stage of : Labor SpO2 (%): 100 Datetime: 12/29/2020 12:43 ANESTHESIA Anesthesia Plans: Epidural; Other Epidural Procedure Other: Pump Started Anesthesia Comments: Pump set for a 10 ml bolus every 50 minutes. Combo of dural punture with epid ural Datetime: 12/29/2020 12:39 Epidural Positioning: Sitting Epidural Procedure: Loading Dose Datetime: 12/29/2020 12:30 PROCEDURE TIME OUT Procedure Verify: Correct Patient Identity; Accurate Procedure Consent Form; Agreement on Procedure to be Done Datetime: 12/29/2020 12:20 PATIENT CARE IV/Blood Work: IV Bolus Started Datetime: 12/29/2020 12:11 Strip Reviewed by: Ivonne Velasco RNC Datetime: 12/29/2020 11:30 FHR Baseline Changes: No Baseline Change Datetime: 12/29/2020 11:00 Patient Care Comments: Covid swab for send out Datetime: 12/29/2020 10:51 MEDICATIONS Analgesics/Sedatives: Tylenol (mg) @ (Annotations: 650 mg) Datetime: 12/29/2020 10:26 Antibiotics: Ampicillin IV 2 Gm Medication Comments: LR 1000 ml at 150 mls/hr Datetime: 12/29/2020 10:19 Respirations: 18 Temperature (C): 36.9 Temperature Route: Oral PAIN Pain Scale: 7 Pain Presence: Intermittent Pain Type: Cramping Pain Location: Abdomen; Back Datetime: 12/29/2020 10:00 Monitor Interventions for UA: [place] Adjusted
--- NOTE | 2020-12-31 19:29 | HISTORY & PHYSICAL EXAMINATION ---
Admit History - Visit Reason Visit Reason: Contractions - : 2 Parity: 1 Complications This : positive: Other (GBS positive) Smoking Status: Never smoker - Mother's Labs Mother's Blood Type: positive: A Mother's RH: positive: Positive GBS: positive: Group B Strep Positive Rubella Status: positive: Immune - Other Maternal History Other Maternal History: Patient is a 25 yo who presents with painful contractions and change in cervical exam from 1 cm to 4 cm. She started having painful contractions this morning. Initial SVE was 1 cm. She walked for one hour and repeat exam she was 4 cm. She endorses FM. Denies LOF/VB. GBS positive. otherwise uncomplicated. The patient has a history of 1 prior vaginal delivery. She notes that she pushed for 3 hours and had a forceps assisted delivery. She reports that epidural was thick and she was unable to feel her contractions. Past medical history is complicated only by anxiety and depression. She took Prozac for the entire prior . She stopped Prozac in December and has been doing well without medications. Her only prior surgery was gallbladder removal in 2018. Her last Pap smear 2017 was within normal limits. She will be due in May of 2021. No history of sexually-transmitted infections and specifically no history of HSV DATING: LMP 04/03/2020 gives KILO 01/08/2021 US on 05/18/20 at 6w3d gives KILO 01/08/21, cwd Blood type A+/Rub imm. Early 1h GTT = 100. Genetic testing: QS normal, declined carrier screen Flu vax: given 09/04/20 FAS: normal except face, spine, heart not well seen, f/u scheduled. CL 5cm, normal fluid, posterior placenta, S=D Completion FAS for view of face and spin WNL. Of note, echogenic intracardiac focus is seen in the left ventricle- her quad screen was WNL TdaP given Glucola 113 RhoGAM not indicated. HSV: Denies. GBS pos Breast pump: has breast pump MOD: Anticipate . US 11/09/2020 shows EFW 56%ile and proprtional Vertex by BSUS Past Medical History: Denies. Allergies: SEPTRA (Critical) SULFA (Critical) Depression Anxiety/depression. Gallstones Kidney stones Past Surgical History: Cholecystectomy 01/2019 P Meds/Allgy - Home Medications Home Medications: Ambulatory Orders Medication Instructions Recorded Confirmed Amox/Clav 875/125 [Augmentin] 1 each PO Q12H #20 tablet 02/19/19 02/23/19 FLUoxetine [PROzac] 10 mg PO DAILY 02/19/19 02/23/19 Hydrocodone/Acetaminophen 1 - 2 each PO Q6H PRN #14 tablet 02/19/19 02/23/19 [Hydrocodon-Acetaminophen 5-325] Hydrocodone/Acetaminophen 1 - 2 each PO Q6H PRN #14 tablet 05/19/19 [Hydrocodon-Acetaminophen 5-325] Ondansetron Odt [Zofran] 4 mg TL Q6H PRN #10 tablet 05/19/19 Tamsulosin HCl [Flomax] 0.4 mg PO DAILY 10 Days cap.er.24h 05/19/19 - Allergies Allergies/Adverse Reactions: Allergies Allergy/AdvReac Type Severity Reaction Status Date / Time Sulfa (Sulfonamide Allergy Intermediate Hives Verified 05/19/19 14:59 Antibiotics) sulfamethoxazole Allergy Hives Verified 05/19/19 14:59 [From ] trimethoprim [From ] Allergy Hives Verified 05/19/19 14:59 Review of Systems - Other Findings Other Findings: As per HPI, otherwise remaining systems are negative. Physical - Abdominal Exam Vital Signs: Temp Pulse Resp BP Pulse Ox 98.2 F 72 18 132/74 H 98 12/30/20 12:00 12/30/20 12:00 12/30/20 12:00 12/30/20 12:00 12/30/20 12:00 Contraction Frequency (min/apart): Q5 min Contraction Intensity: positive: Moderate to strong Uterine Resting Tone: positive: Soft - Monitoring Strip Review: positive: Category I - Presentation Presentation: positive: Vertex - Vaginal Exam Membranes: positive: Membranes intact Dilation (in cm): 4 Effacement (%): 80 Station: positive: -2 - Speculum Exam Speculum Exam Performed: positive: No - Other Notes Labor Progress Note/Additional Text: Gen: mod distress with ctx HEENT: NCAT CV: RRR RESP: CTAB ABD: gravid, S&NT/ND EXT: WWP PSYCH: appropriate affect NEURO: A&O, normal gaint and coordination Plan for Labor - Plan For Labor Plan for Labor: LABOR: -Expectant management -Pitocin Augmentation as indicated -Ampicillin for GBS ppx FWB: Cat tracing, vertex, GBS pos, appropriately grown -Cat I tracing -Ampicilln for GBS ppx PAIN: Desires epidural Anticipate
--- NOTE | 2020-12-31 19:40 | DISCHARGE SUMMARY ---
"Discharge Summary Admit Date: 12/29/20 Discharge Date: 12/30/20 Discharging Provider: Bernice Condition at Discharge: Stable Discharge Disposition: 01 Home, Self Care - DIAGNOSES Admission Diagnoses: IUP at 38+4 wga Active labor Discharge Diagnoses with Status of Each Condition: Same and delivery of term gestation - HPI History of Present Illness: Patient is a 25 yo who presents at 38+4 wga with painful contractions and change in cervical exam from 1 cm to 4 cm. She started having painful contractions this morning. Initial SVE was 1 cm. She walked for one hour and repeat exam she was 4 cm. She endorses FM. Denies LOF/VB. GBS positive. otherwise uncomplicated. The patient has a history of 1 prior vaginal delivery. She notes that she pushed for 3 hours and had a forceps assisted delivery. She reports that epidural was thick and she was unable to feel her contractions. Past medical history is complicated only by anxiety and depression. She took Prozac for the entire prior . She stopped Prozac in December and has been doing well without medications. Her only prior surgery was gallbladder removal in 2018. Her last Pap smear 2017 was within normal limits. She will be due in May of 2021. No history of sexually-transmitted infections and specifically no history of HSV DATING: LMP 04/03/2020 gives KILO 01/08/2021 US on 05/18/20 at 6w3d gives KILO 01/08/21, cwd Blood type A+/Rub imm. Early 1h GTT = 100. Genetic testing: QS normal, declined carrier screen Flu vax: given 09/04/20 FAS: normal except face, spine, heart not well seen, f/u scheduled. CL 5cm, normal fluid, posterior placenta, S=D Completion FAS for view of face and spin WNL. Of note, echogenic intracardiac focus is seen in the left ventricle- her quad screen was WNL TdaP given Glucola 113 RhoGAM not indicated. HSV: Denies. GBS pos Breast pump: has breast pump MOD: Anticipate . US 11/09/2020 shows EFW 56%ile and proprtional Vertex by BSUS - CONSULTS | PROCEDURES Procedures: Epidural Spontaneous vaginal delivery - HOSPITAL COURSE Hospital Course: Patient is a 25 yo at 38+4 wga who presented in active labor. STAGE I: Initial SVE was 1/70/high. She walked for one hour and was then 4 cm dilated. She was admitted in active labor at 9:15 am. GBS positive and received a second dose of ampicillin 10 minutes prior to delivery. Epidural for pain management. Spontaneous rupture of membranes accompanied with greater than average vaginal bleeding. Patient was assessed at time of rupture and was noted to be complete. Cat I tracing throughout stage I labor. STAGE II: Patient pushed well over 59 minutes to deliver a viable male from vertex/compound presentation. Cat II tracing in second stage. Received second stage pitocin to max dose of 1 mU/min. delivered from [place] presentation with the left shoulder anterior, with a hand presentation at the level of the 's cheek. Anterior shoulder delivered without difficulty. Infant was vigorous at time of delivery and cried once head and shoulders were delivered. Infant delivered to maternal chest. Cord clamping was delayed until cord pulsations had ceased. Cord was then clamped x2 and cut. No nuchal cord. Weight and Apgars pending. STAGE III: Placenta delivered at 14:36 after manual expression and gentle downw jd tension on the umbilical cord. It was examined and found to be intact. Perineum was examined and was found to have a deep 2nd degree midline laceration that reached to the anal verge. Rectal exam was performed before and after repair. Anal sphincter was intact but was reinforced with interrupted figure of 8 sutures using 2-0 Vicryl. The remained of the laceration was repaired in the usual sterile fashion in layers with traditional crown stitch using 3-0 Vicryl. Good hemostasis was noted. Rectal exam indicated no suture was present in the rectum. Total EBL, including bloody show prior to delivery was estimated to be 300 mL. Procedure was well tolerated and without complication. course was uncomplicated. Meeting goals for discharge by day #2. Routine discharge instructions given. Declined discharge medications. Rh positive and Rub imm - ALLERGIES Allergies/Adverse Reactions: Allergies Allergy/AdvReac Type Severity Reaction Status Date / Time Sulfa (Sulfonamide Allergy Intermediate Hives Verified 05/19/19 14:59 Antibiotics) sulfamethoxazole Allergy Hives Verified 05/19/19 14:59 [From ] trimethoprim [From ] Allergy Hives Verified 05/19/19 14:59 - MEDICATIONS Home Medications: Ambulatory Orders Medication Instructions Recorded Confirmed Amox/Clav 875/125 [Augmentin] 1 each PO Q12H #20 tablet 02/19/19 02/23/19 FLUoxetine [PROzac] 10 mg PO DAILY 02/19/19 02/23/19 Hydrocodone/Acetaminophen 1 - 2 each PO Q6H PRN #14 tablet 02/19/19 02/23/19 [Hydrocodon-Acetaminophen 5-325] Hydrocodone/Acetaminophen 1 - 2 each PO Q6H PRN #14 tablet 05/19/19 [Hydrocodon-Acetaminophen 5-325] Ondansetron Odt [Zofran] 4 mg TL Q6H PRN #10 tablet 05/19/19 Tamsulosin HCl [Flomax] 0.4 mg PO DAILY 10 Days cap.er.24h 05/19/19 - PHYSICAL EXAM AT DISCHARGE General Appearance: positive: No acute distress ENT: positive: ENT inspection nml Neck: positive: Nml inspection Respiratory: positive: No respiratory distress, Breath sounds nml Cardiovascular: positive: Regular rate & rhythm Peripheral Pulses: positive: 2+ Abdomen: positive: Non-tender, No distention, Other (Fundus firm, below umbi) Skin: positive: Color nml, Warm, Dry Extremities: positive: Non-tender, No pedal edema Neurologic/Psychiatric: positive: Oriented x3, Mood/affect nml - LABS Result Diagrams: 12/29/20 11:00 - FOLLOW UP Follow Up: One week with Bernice - TIME SPENT Time Spent in Discharge (Minutes): 30"
--- NOTE | 2020-12-31 19:47 | PROVIDER PROGRESS NOTE ---
Subjective - Prog Note Date Prog Note Date: 12/30/20 Prog Note Time: 09:00 - Subjective Subjective: Up and ambulating. Tolerating po. Pain well managed. Lochia appropriate. Voiding. No issues with pain. Ready for DC. Objective - Vital Signs/Intake & Output Reviewed Vital Signs: Yes Intake & Output: Intake & Output 12/28/20 12/29/20 12/30/20 12/31/20 23:59 23:59 23:59 23:59 Intake Total 2414.833 Output Total 420 Balance 1994.833 - Objective General Appearance: positive: No acute distress Respiratory: positive: No respiratory distress, Breath sounds nml Cardiovascular: positive: Regular rate & rhythm Abdomen: positive: Non-tender, No distention, Other (FF below umbi) Skin: positive: Color nml, No rash, Dry Extremities: positive: Non-tender, No pedal edema Neurologic/Psychiatric: positive: Oriented x3 - Lab Results Fish Bones: 12/29/20 11:00 Assessment/Plan - Problem List (1) Vaginal delivery Impression: PPD#1: Doing well Meeting goals for discharge Routine DC instructions given
== END 2020-12-30 15:30 | disposition home or self-care (01) | DRG 807 ==
LOC: WFO 07:20 → FBP 07:23 → WFO 09:23 → UNDOADMIN 09:24 → FBP 09:24
PROVIDERS: ADMIT Obstetrics & Gynecology; ATTEND Obstetrics & Gynecology
PROC: 10E0XZZ Delivery of Products of Conception, External Approach (ICD-10-PCS; principal; 2020-12-29)
PROC: 0KQM0ZZ Repair Perineum Muscle, Open Approach (ICD-10-PCS; 2020-12-29)
DX: O99.820 Streptococcus B carrier state complicating pregnancy (principal); Z37.0 Single live birth; O32.6XX0 Maternal care for compound presentation, not applicable or unspecified; O70.1 Second degree perineal laceration during delivery; O99.344 Other mental disorders complicating childbirth; F41.9 Anxiety disorder, unspecified; F32.9 Major depressive disorder, single episode, unspecified; Z20.822 Contact with and (suspected) exposure to COVID-19; Z3A.38 38 weeks gestation of pregnancy
CPT/HCPCS: 59025; 85025; 86850; 86900; 86901; 87635; 99213; A9270; J7120

== ENCOUNTER 2022-07-07 19:04 | Outpatient (CLI) | payer MEDICAID ==
--- NOTE | 2022-07-08 18:23 | Ultrasound Report ---
PROCEDURE: OB First Trimester w/TV INDICATIONS: POSITIVE TEST OUTSIDE/PRIOR DATING DATA: Last menstrual period (LMP): 05/08/2022. LMP-based estimated date of delivery (KILO): 02/12/2023. First dating scan (date and location): 07/07/2022. Estimated date of delivery (KILO) from first dating scan: 02/11/2023. TECHNIQUE: Real-time scanning was performed of the fetus and maternal pelvic organs, with image documentation. Endovaginal scanning was also performed to better visualize the fetus and maternal ovaries. COMPARISON: 11/09/2020 FINDINGS: Single intrauterine consistent with a gestational sac with yolk sac measuring 2.09 cm corre sponding with a 8 week 5 day gestation. heart rate 178. Gestational bleed measures 2.2 x 2.0 x 3.1 cm Cervix appears closed. Left-sided corpus luteum cyst. Measurement variability in dating: +/- 4 weeks by LMP, +/- 7 days by mean sac diameter (use before 6 weeks gestation if crown-rump length not able to be measured), +/- 5 days by crown-rump length (6-12 weeks gestation). IMPRESSION: Single live intrauterine consistent with an 8 week 5 day gestation Positive. Gestational bleed measures 2.2 x 3.1 cm Reviewed by: Mani Lopes MD on 07/08/2022 5:22 PM AKTESSY Approved by: Mani Lopes MD on 07/08/2022 5:22 PM AKDT Station ID: [id number]
== END 2022-07-07 19:05 | disposition home or self-care (01) ==
LOC: DI 19:04
PROVIDERS: ATTEND Obstetrics & Gynecology
DX: O20.8 Other hemorrhage in early pregnancy (principal); O34.81 Maternal care for other abnormalities of pelvic organs, first trimester; N83.12 Corpus luteum cyst of left ovary; Z3A.08 8 weeks gestation of pregnancy

== ENCOUNTER 2022-09-08 09:14 | Outpatient (CLI) | payer MEDICAID ==
[2022-09-08 23:20] LABS: CHLAMYDIA TRACHOMATIS DNA NEGATIVE (NEGATIVE); NEISSERIA GONORRHOEAE DNA NEGATIVE (NEGATIVE); TRICHOMONAS VAGINALIS DNA NEGATIVE (NEGATIVE)
== END 2022-09-08 09:15 | disposition home or self-care (01) ==
LOC: LAB.N 09:14
PROVIDERS: ATTEND Nurse Practitioner
DX: Z36.0 Encounter for antenatal screening for chromosomal anomalies (principal)
CPT/HCPCS: 81511; 87491; 87591; 87661

== ENCOUNTER 2022-10-06 15:42 | Outpatient (CLI) | payer MEDICAID ==
--- NOTE | 2022-10-07 10:47 | Ultrasound Report ---
PROCEDURE: OB Detailed Eval INDICATIONS: SUPERVISION OF OUTSIDE/PRIOR DATING DATA: Last menstrual period (LMP): 05/08/2022. LMP-based estimated date of delivery (KILO): 02/12/2023. First dating scan (date and location): 07/07/2022. Estimated date of delivery (KILO) from first dating scan: 02/11/2023. The below data below was generated using the final KILO of 02/12/2023 TECHNIQUE: Real-time scanning was performed of the fetus, with image documentation and biometric measurements. Endovaginal scanning: Not performed COMPARISON: 07/07/2022 FINDINGS: General: A single living intrauterine gestation is present. Presentation: Breech Placenta: Placental position is anterior, without previa. Amniotic fluid index: 13.9 cm, normal for gestational age. Largest pocket is 4.2 cm. heart rate: 135 beats per minute. Maternal cervical canal: Closed and 6.7 cm long; normal length is 2.5 cm or more. biometrics: Biparietal diameter: 5.3 cm, 22 weeks, 0 days Head circumference: 20.0 cm, 22 weeks, 1 day Abdominal circumference: 18.0 cm, 22 weeks, 6 days Femur length: 3.8 cm, 22 weeks, 0 days Estimated gestational age from initial scan: 21 weeks, 4 days. Composite gestational age from present scan: 22 weeks, 0 days Estimated weight and percentile: 502 g, 85th percentile Measurement variability in biometric dating: +/- 10 days from 12-20 weeks gestation, +/- 2 weeks from 20-30 weeks gestation, +/- 3 weeks at 30 weeks gestation or later. Anatomic survey: Neuro: Ventricles are normal at less than 10 mm. Cisterna magna is normal at 3-11 mm. Cerebellum i s normal in size and morphology. Nuchal skin fold: Normal at less than 6 mm between 14 and 20 weeks gestational age. Face: Nose and lips appear normal. Profile was not well seen due to position. Spine: Not well seen due to position. Heart: 4-chambered heart is present, with normal ventricular outflow tracts. Diaphragm: Diaphragm is intact. Stomach: Left-sided stomach is present. Kidneys: No hydronephrosis. Normal is less than 5 mm in 2nd trimester, less than 7 mm in 3rd trimester. Cord: 3 vessel cord has orthotopic insertion. Bladder: Normal in size. Extremities: All 4 extremities are visualized. IMPRESSION: 1. Single live intrauterine with appropriate growth. 2. Estimated weight at the 85th percentile. 3. Skin covering the spine and a full facial profile were suboptimally seen due to position. Ot herwise normal anatomy is present. Consider follow-up. 4. Closed cervix and normal amniotic fluid volume. Reviewed by: Rachael Vieira MD on 10/07/2022 10:45 AM PST Approved by: Rachael Vieira MD on 10/07/2022 10:45 AM PST Station ID: [id number]
== END 2022-10-06 15:43 | disposition home or self-care (01) ==
LOC: DI 15:42
PROVIDERS: ATTEND Obstetrics & Gynecology
DX: Z34.92 Encounter for supervision of normal pregnancy, unspecified, second trimester (principal)

== ENCOUNTER 2022-10-28 15:38 | Outpatient (CLI) | payer MEDICAID ==
--- NOTE | 2022-10-28 16:56 | Ultrasound Report ---
PROCEDURE: OB F/U or Repeat INDICATIONS: SUPERVISION OF OUTSIDE/PRIOR DATING DATA: Last menstrual period (LMP): 05/08/2022. LMP-based estimated date of delivery (KILO): 02/12/2023. First dating scan (date and location): 07/07/2022. Estimated date of delivery (KILO) from first dating scan: 02/11/2023. TECHNIQUE: Real-time scanning was performed of the fetus, with image documentation and biometric measurements. Endovaginal scanning: No COMPARISON: 10/06/2022 FINDINGS: General: A single living intrauterine gestation is present. Presentation: 3 Placenta: Placental position is anterior, without previa. Amniotic fluid index: 15.3 cm, 55th percentile for gestational age. heart rate: 140 beats per minute. Maternal cervical canal: 5.5 cm long; normal length is 2.5 cm or more. biometrics: Estimated gestational age from initial scan: 24 weeks 6 days Measurement variability in biometric dating: +/- 10 days from 12-20 weeks gestation, +/- 2 weeks from 20-30 weeks gestation, +/- 3 weeks at 30 weeks gestation or more. Other: Survey of anatomy includes normal chest/diaphragm, stomach/abdomen, bilateral renal rolando ons, and urinary bladder/pelvis. Spine is not well seen secondary to position. IMPRESSION: 1. Single living intrauterine gestation. 2. Suboptimal evaluation of the spine. Reviewed by: Sammi Lim MD on 10/28/2022 4:55 PM PST Approved by: Sammi Lim MD on 10/28/2022 4:55 PM PST Station ID: [id number]
== END 2022-10-28 15:39 | disposition home or self-care (01) ==
LOC: DI 15:38
PROVIDERS: ATTEND Nurse Practitioner Obstetrics & Gynecology
DX: Z34.02 Encounter for supervision of normal first pregnancy, second trimester (principal); Z36.89 Encounter for other specified antenatal screening

== ENCOUNTER 2022-11-12 08:47 | Outpatient (CLI) | payer MEDICAID ==
[2022-11-12 12:12] LABS: HCT - HEMATOCRIT 35.4 % (37.0-47.0); HGB - HEMOGLOBIN 11.9 g/dL (12.0-16.0); MEAN CORPUSCULAR HEMOGLOBIN 30.4 pg (27.0-31.0); MEAN CORPUSCULAR HGB CONC 33.6 g/dL (32.0-36.0); MEAN CORPUSCULAR VOLUME 90.3 fL (81.0-99.0); MEAN PLATELET VOLUME 11.5 fL (7.9-10.8); RED BLOOD COUNT 3.92 10^6/uL (4.20-5.40); RED CELL DISTRIBUTION WIDTH 13.9 % (12.0-15.0); WHITE BLOOD COUNT 7.7 x10^3/uL (4.8-10.8)
== END 2022-11-12 08:48 | disposition home or self-care (01) ==
LOC: LAB.N 08:47
PROVIDERS: ATTEND Nurse Practitioner Obstetrics & Gynecology
DX: Z36.9 Encounter for antenatal screening, unspecified (principal)
CPT/HCPCS: 36415; 82950; 85027

== ENCOUNTER 2023-01-26 23:57 | Outpatient (CLI) | payer MEDICAID ==
[2023-01-27 03:50] VITALS: BP 122/63
--- NOTE | 2023-01-27 11:48 | PROVIDER PROGRESS NOTE ---
- HPI Chief Complaint: Labor Check Current : Current EDU 02/12/23 Gestation 37 Weeks and 5 Days 3 Para 2 Vital Signs Temperature 36.6 C 01/27/23 00:58 Heart Rate 77 01/27/23 00:58 Respiratory Rate 18 01/27/23 00:58 Blood Pressure 123/80 01/27/23 00:58 O2 Saturation 100 01/27/23 00:58 Temperature 36.7 C 01/27/23 04:22 Heart Rate 79 01/27/23 04:22 Respiratory Rate 14 01/27/23 04:22 Blood Pressure 122/63 01/27/23 04:22 O2 Saturation 100 01/27/23 03:30 If not protocol: Oxygen Flow, liters/minute - Procedures OB Procedure Performed: NST Diagnosis/Indication for NST: Other NST Procedure: NST Procedure Start Date 01/27/23 Start Time 01:00 Stop Time 01:30 Vibroacoustic Stimulation Used No Patient States Movement Yes - Plan Plan: Amy is a 27yo at 37.3wks gestation who presents to [facility] with c/o contractions. She reports the contractions have intensified throughout the day today and really intensified tonight at 6:00pm. She denies vaginal bleeding or leakage of fluid. She reports +FM. NST reactive. FHR Baseline 140s, moderate variability, + accels, no decels Contractions palpate mild every 5-8 minutes with soft resting tone. SVE 2/50/-3, posterior and vertex with intact membranes. Pt ambulates x 2 hrs and repeat SVE unchanged Reviewed labor precautions and warning s/sx. Pt has emergency contact number. Pt released home with precautions. FINAL DIAGNOSIS: False labor >37wks gestation
[2023-02-08] MEDS ORDERED: TERBUTALINE 1 MG/ML VIAL SUBQ PRN (04:53)
[2023-02-08] MEDS ORDERED: miSOPROStoL 200 MCG TABLET BC PRN (04:53)
[2023-02-08] MEDS ORDERED: TRANEXAMIC ACID IN NACL 1,000 MG/100 ML BAG IV PRN (04:53)
[2023-02-08] MEDS ORDERED: LABETALOL 20 MG/4 ML SYRINGE IVP PRN ×3 (04:53)
[2023-02-08] MEDS ORDERED: hydrALAZINE INJ 20 MG/ML VIAL IVP PRN ×2 (04:53)
[2023-02-08] MEDS ORDERED: METHYLERGONOVINE 0.2 MG/ML VIAL IM PRN (04:53)
[2023-02-08] MEDS ORDERED: LACTATED RINGERS 500 ML IV ONE (04:53)
[2023-02-08] MEDS ORDERED: OXYTOCIN 10 UNIT/ML VIAL IM PRN (04:53)
[2023-02-08] MEDS ORDERED: AMPICILLIN 2 GM in SODIUM CHLORIDE 0.9% MINIBAG 100 ML IV ONE (04:53)
[2023-02-08] MEDS ORDERED: lidocaine 1% 20 ML MDV ID PRN (04:53)
[2023-02-08] MEDS ORDERED: miSOPROStoL 200 MCG TABLET PR PRN (04:53)
[2023-02-08] MEDS ORDERED: CARBOPROST TROMETHAMINE 250 MCG/ML AMP IM PRN (04:53)
[2023-02-08] MEDS ORDERED: fentaNYL 100 MCG/2 ML VIAL IVP PRN (04:53)
[2023-02-08] MEDS ORDERED: SODIUM CHLORIDE FLUSH 0.9% 10 ML SYRINGE IVP PRN (04:53)
[2023-02-08] MEDS ORDERED: OXYTOCIN/SODIUM CHLORIDE 500 ML IV PRN (04:53)
[2023-02-08] MEDS ORDERED: NIFEdipine 10 MG CAPSULE PO PRN (04:53)
[2023-02-08] MEDS ORDERED: SODIUM CHLORIDE FLUSH 0.9% 10 ML SYRINGE IVP SCH (05:00)
[2023-02-08 05:37] LABS: BASOPHILS % (AUTO) 0.3 %; EOSINOPHILS % (AUTO) 0.2 %; HCT - HEMATOCRIT 41.7 % (37.0-47.0); HGB - HEMOGLOBIN 14.4 g/dL (12.0-16.0); LYMPHOCYTES # (AUTO) 1.6 10^3/uL (1.5-3.5); LYMPHOCYTES % (AUTO) 12.7 %; MEAN CORPUSCULAR HEMOGLOBIN 30.5 pg (27.0-31.0); MEAN CORPUSCULAR HGB CONC 34.5 g/dL (32.0-36.0); MEAN CORPUSCULAR VOLUME 88.3 fL (81.0-99.0); MEAN PLATELET VOLUME 11.6 fL (7.9-10.8); MONOCYTES # (AUTO) 0.7 10^3/uL (0.0-1.0); MONOCYTES % (AUTO) 5.5 %; NEUTROPHILS # (AUTO) 10.3 10^3/uL (1.5-6.6); NEUTROPHILS % (AUTO) 80.6 %; PLT - PLATELET COUNT 181 10^3/uL (130-450); RED BLOOD COUNT 4.72 10^6/uL (4.20-5.40); RED CELL DISTRIBUTION WIDTH 13.2 % (12.0-15.0); WHITE BLOOD COUNT 12.8 x10^3/uL (4.8-10.8)
[2023-02-08] MEDS ORDERED: AMPICILLIN 1 GM in SODIUM CHLORIDE 0.9% MINIBAG 100 ML IV SCH (09:00)
== END 2023-01-27 03:40 | disposition home or self-care (01) ==
LOC: WFO 23:57 → FBP 23:58 → WFO 01-27 03:40
PROVIDERS: ATTEND Nurse Practitioner Obstetrics & Gynecology
DX: O47.1 False labor at or after 37 completed weeks of gestation (principal); Z3A.37 37 weeks gestation of pregnancy
CPT/HCPCS: 59025; 85025; 86850; 86900; 86901; 99215

== ENCOUNTER 2023-02-08 03:37 | Inpatient (IN) | payer MEDICAID ==
[2023-02-08] MEDS ORDERED: METHYLERGONOVINE 0.2 MG/ML VIAL IM PRN (04:56)
[2023-02-08] MEDS ORDERED: OXYTOCIN 10 UNIT/ML VIAL IM PRN (04:56)
[2023-02-08] MEDS ORDERED: TRANEXAMIC ACID IN NACL 1,000 MG/100 ML BAG IV PRN (04:56)
[2023-02-08] MEDS ORDERED: miSOPROStoL 200 MCG TABLET BC PRN (04:56)
[2023-02-08] MEDS ORDERED: AMPICILLIN 2 GM in SODIUM CHLORIDE 0.9% MINIBAG 100 ML IV ONE (04:56)
[2023-02-08] MEDS ORDERED: lidocaine 1% 20 ML MDV ID PRN (04:56)
[2023-02-08] MEDS ORDERED: CARBOPROST TROMETHAMINE 250 MCG/ML AMP IM PRN (04:56)
[2023-02-08] MEDS ORDERED: miSOPROStoL 200 MCG TABLET PR PRN (04:56)
[2023-02-08] MEDS ORDERED: OXYTOCIN/SODIUM CHLORIDE 500 ML IV PRN ×2 (04:56→06:30)
[2023-02-08] MEDS ORDERED: LACTATED RINGERS 1,000 ML ONE (05:01)
[2023-02-08] MEDS ORDERED: AMPICILLIN 2 GM VIAL IV ONE (05:34)
[2023-02-08] MEDS ORDERED: OXYTOCIN/SODIUM CHLORIDE 500 ML IV ONE (05:44)
[2023-02-08] MEDS ORDERED: OXYTOCIN 10 UNIT/ML VIAL ONE (05:44)
[2023-02-08] MEDS ORDERED: miSOPROStoL 200 MCG TABLET ONE (05:44)
[2023-02-08] MEDS ORDERED: TRANEXAMIC ACID IN NACL 1,000 MG/100 ML BAG IV ONE (05:45)
[2023-02-08] MEDS ORDERED: lidocaine 1% 20 ML MDV ONE (06:44)
[2023-02-08] MEDS ORDERED: HYDROCORTISONE 1% CREAM 28 GM TUBE PR PRN (07:13)
[2023-02-08] MEDS ORDERED: WITCH HAZEL/GLYCERIN 1 PAD TOP PRN (07:13)
[2023-02-08] MEDS ORDERED: LIDOCAINE 2% 10 ML MDV SUBQ ONE (07:16)
--- NOTE | 2023-02-08 07:17 | HISTORY & PHYSICAL EXAMINATION ---
Admit History - Visit Reason Visit Reason: Contractions - : 3 Parity: 2 Premature: 0 Ectopic: 0 : 0 Care: positive: [facility] Risk/History: positive: None Complications This : positive: None Smoking Status: Never smoker - Mother's Labs Mother's Blood Type: positive: A Mother's RH: positive: Positive GBS: positive: Group B Strep Positive Rubella Status: positive: Immune Meds/Allgy - Home Medications Home Medications: Ambulatory Orders Medication Instructions Recorded Confirmed Amox/Clav 875/125 [Augmentin] 1 each PO Q12H #20 tablet 02/19/19 02/23/19 FLUoxetine [PROzac] 10 mg PO DAILY 02/19/19 02/23/19 Hydrocodone/Acetaminophen 1 - 2 each PO Q6H PRN #14 tablet 02/19/19 02/23/19 [Hydrocodon-Acetaminophen 5-325] Hydrocodone/Acetaminophen 1 - 2 each PO Q6H PRN #14 tablet 05/19/19 [Hydrocodon-Acetaminophen 5-325] Ondansetron Odt [Zofran] 4 mg TL Q6H PRN #10 tablet 05/19/19 Tamsulosin HCl [Flomax] 0.4 mg PO DAILY 10 Days cap.er.24h 05/19/19 - Allergies Allergies/Adverse Reactions: Allergies Allergy/AdvReac Type Severity Reaction Status Date / Time Sulfa (Sulfonamide Allergy Intermediate Hives Verified 05/19/19 14:59 Antibiotics) sulfamethoxazole Allergy Hives Verified 05/19/19 14:59 [From ] trimethoprim [From ] Allergy Hives Verified 05/19/19 14:59 Review of Systems - Constitutional Constitutional: denies: Fatigue, Fever, Chills, Malaise - Eyes Eyes: denies: Blurred vision, Spots in vision, Dipolpia - Cardiovascular Cariovascular: reports: Edema. denies: Irregular heart rate, Palpitations, Chest pain - Respiratory Respiratory: denies: Cough, Wheezing, SOB at rest - Gastrointestinal Gastrointestinal: denies: Constipation, Diarrhea, Nausea, Vomiting - Genitourinary Genitourinary: denies: Dysuria - Integumentary Integumentary: denies: Rash, Pruritis - Neurological Neurological: denies: Headache Physical - Abdominal Exam Vital Signs: Temp Pulse Resp BP Pulse Ox O2 Flow Rate 36.7 C 76 14 117/70 02/08/23 04:34 02/08/23 04:34 02/08/23 04:34 02/08/23 04:34 Contraction Frequency (min/apart): 3-5 Contraction Intensity: positive: Strong Uterine Resting Tone: positive: Soft - Monitoring Heart Rate Baseline: 140 Strip Review: positive: Category II - Presentation Presentation: positive: Vertex - Vaginal Exam Membranes: positive: Membranes intact Dilation (in cm): 8 Effacement (%): 100 Station: positive: 0 Cervical Position: positive: Anterior - Speculum Exam Speculum Exam Performed: positive: No Plan for Labor - Plan For Labor I expect patient to be DC'd or transferred within 96 hours.: Yes Plan for Labor: HPI: This 27yo @ 39.3wks gestation by LMP c/w 8.5wk U/S presented to [facility] with c/o contractions. She reports onset of contractions at approximately 2300 this evening and states they have increased in frequency and intensity sin ce that time. She reports light vaginal spotting and increased vaginal discharge but denies leakage of fluid. She reports +FM. Upon arrival cervix was 8/100/0 and vertex with intact membranes. She was noted to contract every 3-5 minutes with soft resting tone. FHR baseline 140s, with recurrent variable decelerations with contractions but remains overall reassuring. She will be admitted to [facility] for expectant management. She has been a patient of [facility] since her transfer of care from [facility] at 21.4wks gestation. She has received consistent care for the duration of her which has remained uncomplicated. She is noted to be GBS positive. 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 SAB x 0. Medical Hx: no significant Surgical Hx: cholecystectomy -2019 Family Hx: thyroid disease - mother; Colon cancer - MGF; Breast cancer - maternal great aunt; Diabetes - MGF Meds: PNV, Vitamin D Allergies: Sulfa-rash; Paxil- rash Social: , lives with Bharat. 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 No tobacco, ETOH or recreational drug use. Caffeine intake is minimal. course: A positive, antibody neg Rubella immune Initial U/S @ 8.5wk U/S LMP dating Genetic screening - neg FAS WNL with the exception of poor visualization of facial profile and spine. Anterior placenta, no previa. Size c/w dating. 3VC. Completion FAS WNL. Influenza - declined COVID-19 vaccine - declined Tdap - declined Glucola - 115 GBS negative Physical exam: Normocephalic, atraumatic Heart RRR w/o M/G/R Lungs CTAB Abdomen gravid, soft, nontender FHR baseline 140s, moderate variability, + accels, recurrent variable decels- overall reassuring Contractions palpate firm every 3-5 minutes with soft resting tone SVE 8/100/-1, vertex. Intact membranes with blood show Bilateral LE's trace edema Assessment: 27yo @ 39.3wks gestation by LMP c/w 8.5wk U/S Active labor GBS positive FHR Category II Plan: Admit to [facility] for expectant management Continuous monitoring Initiate ampicillin for GBS prophylaxis per protocol Anticipate .
[2023-02-08] MEDS ORDERED: lidocaine 1% 20 ML MDV SUBQ ONE (07:23)
--- NOTE | 2023-02-08 07:46 | DELIVERY NOTE ---
Delivery Note - Labor Labor: positive: Spontaneous - Delivery Method Delivery Method: positive: Spontaneous vaginal delivery - Presentation Presentation: positive: Vertex, OA - occiput anterior - Nuchal Cord Nuchal Cord: positive: Present - Amniotic Fluid Description Amniotic Fluid Description: positive: Clear - Episiotomy Type Episiotomy Type: positive: None - Laceration Laceration: positive: 2nd degree - Suture Suture Type: positive: Vicryl Suture Size: positive: 2-0 - Delivery Outcome Delivery Outcome: positive: Livebirth - [place]: positive: Placed in direct skin contact with mother, Bulb syringe, Stimulated, Warmed, [place] used [place] sex: positive: Male - Cord Cord: positive: 3 vessels - Placenta Placenta: positive: Intact, Spontaneous - Estimated Blood Loss Estimated Blood Loss (in cc): 250 - Post Delivery Events Post Delivery Events: positive: No post delivery events - Delivery Comments (Free Text/Narrative) Delivery Comments (Free Text/Narrative): Labor: This 27yo @ 39.3wks gestation by LMP c/w 8.5wk U/S presented on 02/08/2023 @ 0450 with c/o contractions. Cervix was 8/100/-1 and vertex with intact membranes. FHR pattern demonstrated category II pattern throughout labor secondary to recurrent variable decelerations however remained overall reassurin g and was imminent. Normal labor course. Pt progressed to c/c/+1 @ 0620. : Normal SVB of viable male infant on 02/08/2023 @ 0626 with amniotic sac intact. Nuchal cord x 1 was delivered through. The was placed on maternal abdomen, stimulated, dried, and placed skin to skin. 's were 8/9 at 1 and 5 min respectively. Pitocin administered via IV for hemostasis. The umbilical cord was allowed to stop pulsating at which time it was doubly clamped by CNM and cut by FOB. Cord blood was obtained. 3VC. Fundal massage and gentle cord traction applied for active management of the third stage. Placenta delivered spontaneously and intact @ 0626. EBL 250mL. Fourth stage: Uterine fundus firm and there is no excessive bleeding. The perineum, vagina, and cervix were inspected and noted to have 2nd degree vaginal laceration which was repaired using a 2-[address]-1 needle in standard fashion and under sterile conditions. Vaginal and rectal examination following the repair was done. Tissues well approximated. initiated. Family bonding well. Both mother and baby were left in stable condition.
[2023-02-08] MEDS ORDERED: LACTATED RINGERS 1,000 ML IV SCH (08:00)
[2023-02-08] MEDS: ACETAMINOPHEN 500 MG TABLET PO SCH ×2 (08:56→17:05)
[2023-02-08] MEDS: IBUPROFEN 800 MG TABLET PO SCH ×3 (08:57→21:46)
[2023-02-08] MEDS ORDERED: hydrALAZINE INJ 20 MG/ML VIAL IVP PRN ×2 (09:01)
[2023-02-08] MEDS ORDERED: SODIUM CHLORIDE FLUSH 0.9% 10 ML SYRINGE IVP PRN (09:01)
[2023-02-08] MEDS ORDERED: LABETALOL 20 MG/4 ML SYRINGE IVP PRN ×3 (09:01)
[2023-02-08] MEDS ORDERED: NIFEdipine 10 MG CAPSULE PO PRN (09:01)
[2023-02-08] MEDS ORDERED: TERBUTALINE 1 MG/ML VIAL SUBQ PRN (09:01)
[2023-02-08] MEDS ORDERED: SODIUM CHLORIDE FLUSH 0.9% 10 ML SYRINGE IVP SCH (10:00)
[2023-02-08] MEDS: DOCUSATE SODIUM 100 MG CAPSULE PO SCH ×2 (10:03→21:46)
[2023-02-09] MEDS: ACETAMINOPHEN 500 MG TABLET PO SCH ×2 (00:46→08:29)
[2023-02-09] MEDS: IBUPROFEN 800 MG TABLET PO SCH ×2 (04:06→11:26)
[2023-02-09] MEDS: DOCUSATE SODIUM 100 MG CAPSULE PO SCH (08:29)
--- NOTE | 2023-02-09 08:34 | Discharge Plan ---
Discharge Plan Problem Reviewed?: Yes Disposition: Home, Self Care Condition: Good Diet: Regular Activity Restrictions: No Restrictions Shower Restrictions: No Weight Bearing: Full Weight Instruction Topics: Vaginal After No Smoking: If you smoke, Please STOP! Call for help. Follow-up with: Trinity Odell CNM, ARNP [Provider Admit Priv/Credential] - 1 Week
[2023-02-09 08:38] VITALS: BP 121/59
--- NOTE | 2023-02-09 09:08 | DISCHARGE SUMMARY ---
Discharge Summary Condition at Discharge: Good Discharge Disposition: 01 Home, Self Care - ALLERGIES Allergies/Adverse Reactions: Allergies Allergy/AdvReac Type Severity Reaction Status Date / Time Sulfa (Sulfonamide Allergy Intermediate Hives Verified 05/19/19 14:59 Antibiotics) sulfamethoxazole Allergy Hives Verified 05/19/19 14:59 [From ] trimethoprim [From ] Allergy Hives Verified 05/19/19 14:59 - MEDICATIONS Home Medications: Ambulatory Orders Medication Instructions Recorded Confirmed Amox/Clav 875/125 [Augmentin] 1 each PO Q12H #20 tablet 02/19/19 02/23/19 FLUoxetine [PROzac] 10 mg PO DAILY 02/19/19 02/23/19 Hydrocodone/Acetaminophen 1 - 2 each PO Q6H PRN #14 tablet 02/19/19 02/23/19 [Hydrocodon-Acetaminophen 5-325] Hydrocodone/Acetaminophen 1 - 2 each PO Q6H PRN #14 tablet 05/19/19 [Hydrocodon-Acetaminophen 5-325] Ondansetron Odt [Zofran] 4 mg TL Q6H PRN #10 tablet 05/19/19 Tamsulosin HCl [Flomax] 0.4 mg PO DAILY 10 Days cap.er.24h 05/19/19
--- NOTE | 2023-02-09 15:03 | Labor Flowsheet ---
Labor Flowsheet Datetime Report Generated by CPN: 02/09/2023 15:03 Datetime: 02/09/2023 08:20 VITAL SIGNS NBP Sys/Jody/Mean (mmHg): 121 : 59 : 73 Pulse: 85 Datetime: 02/09/2023 04:10 SpO2 (%): 98 Datetime: 02/08/2023 09:01 Membranes Ruptured Date/Time: 02/08/2023 06:26 Membranes Rupture Method: Spontaneous Amniotic Fluid Color: Clear Amniotic Fluid Amount: Small Amniotic Fluid Odor: None Datetime: 02/08/2023 08:45 Stage of : Recovery Datetime: 02/08/2023 06:32 MEDICATIONS Pitocin (milliunits): Started @ Medication Comments: post bolus Datetime: 02/08/2023 06:26 UTERINE ACTIVITY Monitor Mode: External Frequency (min): 2-3 Quality: Strong Duration (sec): 70 Pattern: Normal: <= 5 Contractions in 10 Minutes Resting Tone (Palpate): Relaxed Datetime: 02/08/2023 06:23 Comments: Delivery imminent Datetime: 02/08/2023 06:21 STAGE 2 Pushing: Urge to Push; Involuntary Pushing Pushing Position: Pushing with Contractions; Pushing Standing Pushing Progress: Descent with Pushing Datetime: 02/08/2023 06:20 VAGINAL EXAM Dilatation (cm): 10.0 Effacement (%): 100 Station: 1 Exam by: Jose R Datetime: 02/08/2023 06:15 ASSESSMENT A Monitor Mode: Broach Grinder Interventions for FHR: Ultrasound Adjusted FHR Baseline Rate : 130 Variability: Moderate 6-25 bpm Accelerations: None Decelerations: Early; Late; Variable Category: Category II Datetime: 02/08/2023 06:06 LaborFlag: Labor Datetime: 02/08/2023 05:45 Actions for Decelerations: Other Datetime: 02/08/2023 05:35 Antibiotics: Start Antibiotics; Ampicillin IV 2 Gm Datetime: 02/08/2023 05:34 PATIENT CARE IV/Blood Work: IV Bag Number @ 1 Patient Care Comments: LR @ 100 Datetime: 02/08/2023 05:30 Monitor Interventions for UA: [place] Adjusted Datetime: 02/08/2023 05:19 COMMUNICATION Communication: Provider at Bedside Datetime: 02/08/2023 05:10 Provider Notified (Name): David ESPINOZA
--- NOTE | 2023-02-11 18:29 | DISCHARGE SUMMARY ---
Discharge Summary Condition at Discharge: Good Discharge Disposition: 01 Home, Self Care - HOSPITAL COURSE Hospital Course: Date of Admission: Date of Discharge: Diagnosis on Admission: 1. 27yo @ 39.3wks gestation by LMP c/w 8.5wk U/S 2. Active labor 3. GBS positive 4. FHR Category II Diagnosis on Discharge 1. 27yo PPD#1 s/p TSVB viable male 2. 3. Normal recovery Brief History: She is a patient of [facility] who presented on 02/08/2023 with c/o contractions. Cervix was 8/100/-1 and vertex with intact membranes. FHR pattern demonstrated Category II pattern throughout labor but remained reassuring overall. She spontaneously progressed to deliver a viable male infant on 02/08/2023 @ 0626. Apgars were 8/9 @ v1 and 5 min respectively. EBL 250mL. There was noted to be a 2nd degree perineal laceration which was repaired using a 2-0 vicryl in standard fashion and under sterile conditions. She has been doing well in her course. She is ambulating and tolerating a regular diet. She is urinating without difficulty and her lochia is normal. Her pain is well controlled with oral medications. She will be discharged home today on pstpartum day #1 with instructions to continue taking her vitamin while and to continue taking ibuprofen and tylenol over the counter as needed for pain management. She intends to follow up with myself at [facility] in 1 week for routine visit or sooner if needed. She has been given precautions to call if she has any wornseing fevers, chills, abdominal pain, increased vaginal bleeding or foul smelling vaginal lochia. Physical Exam: Normocephalic, atraumtic. Heart RRR w/o M/G/R, lungs CTAB, abdomen soft and nontender with fundus firm at U, perineum intact, repair with mild edema, light lochia rubra, bilateral LE's trace edema, mood is good. - ALLERGIES Allergies/Adverse Reactions: Allergies Allergy/AdvReac Type Severity Reaction Status Date / Time Sulfa (Sulfonamide Allergy Intermediate Hives Verified 05/19/19 14:59 Antibiotics) sulfamethoxazole Allergy Hives Verified 05/19/19 14:59 [From ] trimethoprim [From ] Allergy Hives Verified 05/19/19 14:59 - MEDICATIONS Home Medications: Ambulatory Orders Medication Instructions Recorded Confirmed Amox/Clav 875/125 [Augmentin] 1 each PO Q12H #20 tablet 02/19/19 02/23/19 FLUoxetine [PROzac] 10 mg PO DAILY 02/19/19 02/23/19 Hydrocodone/Acetaminophen 1 - 2 each PO Q6H PRN #14 tablet 02/19/19 02/23/19 [Hydrocodon-Acetaminophen 5-325] Hydrocodone/Acetaminophen 1 - 2 each PO Q6H PRN #14 tablet 05/19/19 [Hydrocodon-Acetaminophen 5-325] Ondansetron Odt [Zofran] 4 mg TL Q6H PRN #10 tablet 05/19/19 Tamsulosin HCl [Flomax] 0.4 mg PO DAILY 10 Days cap.er.24h 05/19/19
== END 2023-02-09 11:30 | disposition home or self-care (01) | DRG 807 ==
LOC: WFO 03:37 → FBP 04:14 → WFO 04:54 → FBP 04:56
PROVIDERS: ADMIT Nurse Practitioner Obstetrics & Gynecology; ATTEND Nurse Practitioner Obstetrics & Gynecology
PROC: 10E0XZZ Delivery of Products of Conception, External Approach (ICD-10-PCS; principal; 2023-02-08)
PROC: 0KQM0ZZ Repair Perineum Muscle, Open Approach (ICD-10-PCS; 2023-02-08)
DX: O99.824 Streptococcus B carrier state complicating childbirth (principal); Z37.0 Single live birth; O69.81X0 Labor and delivery complicated by cord around neck, without compression, not applicable or unspecified; O76 Abnormality in fetal heart rate and rhythm complicating labor and delivery; O70.1 Second degree perineal laceration during delivery; Z3A.39 39 weeks gestation of pregnancy
CPT/HCPCS: 99215; A9270; J7120

== ENCOUNTER 2024-01-05 08:52 | Outpatient (CLI) | payer MEDICAID ==
[2024-01-05 12:28] LABS: BASOPHILS % (AUTO) 0.6 %; EOSINOPHILS % (AUTO) 0.6 %; HCT - HEMATOCRIT 38.5 % (37.0-47.0); HGB - HEMOGLOBIN 12.8 g/dL (12.0-16.0); LYMPHOCYTES # (AUTO) 1.8 10^3/uL (1.5-3.5); LYMPHOCYTES % (AUTO) 25.9 %; MEAN CORPUSCULAR HEMOGLOBIN 29.2 pg (27.0-31.0); MEAN CORPUSCULAR HGB CONC 33.2 g/dL (32.0-36.0); MEAN CORPUSCULAR VOLUME 87.9 fL (81.0-99.0); MEAN PLATELET VOLUME 11.3 fL (7.9-10.8); MONOCYTES # (AUTO) 0.4 10^3/uL (0.0-1.0); MONOCYTES % (AUTO) 6.4 %; NEUTROPHILS # (AUTO) 4.5 10^3/uL (1.5-6.6); NEUTROPHILS % (AUTO) 66.2 %; PLT - PLATELET COUNT 215 10^3/uL (130-450); RED BLOOD COUNT 4.38 10^6/uL (4.20-5.40); RED CELL DISTRIBUTION WIDTH 14.1 % (12.0-15.0); WHITE BLOOD COUNT 6.8 x10^3/uL (4.8-10.8)
[2024-01-06 06:09] LABS: HBsAG SCREEN Negative (Negative); HCV AB Non Reactive (Non Reactive); HIV SCREEN 4TH GENERATION Non Reactive (Non Reactive)
[2024-01-06 08:12] LABS: RPR Non Reactive (Non Reactive); VARICELLA-ZOSTER AB IGG >4000 index (Immune >165)
== END 2024-01-05 08:53 | disposition home or self-care (01) ==
LOC: LAB.N 08:52
PROVIDERS: ATTEND Nurse Practitioner Obstetrics & Gynecology
DX: Z36.89 Encounter for other specified antenatal screening (principal)
CPT/HCPCS: 36415; 85025; 86592; 86762; 86787; 86803; 86850; 86900; 86901; 87340; 87389

== ENCOUNTER 2024-02-10 08:28 | Outpatient (CLI) | payer MEDICAID | END 2024-02-10 08:29 | disposition home or self-care (01) | LOC: LAB.N 08:28 | PROVIDERS: ATTEND Nurse Practitioner Obstetrics & Gynecology | DX: Z13.79 Encounter for other screening for genetic and chromosomal anomalies (principal) | CPT/HCPCS: 36415; 81511 ==

== ENCOUNTER 2024-04-10 12:28 | Outpatient (CLI) | payer MEDICAID ==
--- NOTE | 2024-04-10 17:46 | Ultrasound Report ---
PROCEDURE: OB Follow up INDICATIONS: SUPERVISION OF OUTSIDE/PRIOR DATING DATA: Last menstrual period (LMP): 10/27/2023 . LMP-based estimated date of delivery (KILO): 08/02/2024. First dating scan (date and location): Not available. Estimated date of delivery (KILO) from first dating scan: n.a. The below data below was generated using the working KILO of 08/02/2024 TECHNIQUE: Real-time scanning was performed of the fetus, with image documentation and biometric measurements. Endovaginal scanning: Not performed. COMPARISON: OB ultrasound, 03/22/2024. FINDINGS: General: A single living intrauterine gestation is present. Presentation: Vertex Placenta: Placental position is posterior, without previa. Amniotic fluid index: 13.7 cm, largest pocket 3.8 cm. heart rate: 145 beats per minute. Maternal cervical canal: Closed measuring 4.9 cm long; normal length is 2.5 cm or more. biometrics: Not performed Estimated gestational age (clinical): 23 weeks 5 days. Measurement variability in biometric dating: +/- 10 days from 12-20 weeks gestation, +/- 2 weeks from 20-30 weeks gestation, +/- 3 weeks at 30 weeks gestation or more. Other: The right ventricular outflow tract, as well as the four-chamber view and the left ventricular outflow tract, are normal. IMPRESSION: 1. A single living IUP redemonstrated. 2. Normal heart, including the right ventricular outflow tract. Reviewed by: Katie Cavanaugh MD on 04/10/2024 4:44 PM DELL Approved by: Katie Cavanaugh MD on 04/10/2024 4:44 PM DELL Station ID: [id number]
== END 2024-04-10 12:29 | disposition home or self-care (01) ==
LOC: DI 12:28
PROVIDERS: ATTEND Nurse Practitioner Obstetrics & Gynecology
DX: Z34.02 Encounter for supervision of normal first pregnancy, second trimester (principal); Z36.89 Encounter for other specified antenatal screening

== ENCOUNTER 2024-04-26 09:14 | Outpatient (CLI) | payer MEDICAID ==
[2024-04-26 12:16] LABS: HCT - HEMATOCRIT 36.9 % (37.0-47.0); MEAN CORPUSCULAR HEMOGLOBIN 29.5 pg (27.0-31.0); MEAN CORPUSCULAR HGB CONC 32.5 g/dL (32.0-36.0); MEAN CORPUSCULAR VOLUME 90.7 fL (81.0-99.0); MEAN PLATELET VOLUME 11.4 fL (7.9-10.8); RED BLOOD COUNT 4.07 10^6/uL (4.20-5.40); RED CELL DISTRIBUTION WIDTH 13.4 % (12.0-15.0); WHITE BLOOD COUNT 8.2 x10^3/uL (4.8-10.8)
== END 2024-04-26 09:15 | disposition home or self-care (01) ==
LOC: LAB.N 09:14
PROVIDERS: ATTEND Nurse Practitioner Obstetrics & Gynecology
DX: Z36.9 Encounter for antenatal screening, unspecified (principal)
CPT/HCPCS: 36415; 82950; 85027

== ENCOUNTER 2024-07-13 08:00 | Outpatient (CLI) | payer MEDICAID | END 2024-07-13 23:59 | disposition home or self-care (01) | LOC: LAB.WC 08:00 | PROVIDERS: ATTEND Nurse Practitioner Obstetrics & Gynecology | DX: Z36.85 Encounter for antenatal screening for Streptococcus B (principal) | CPT/HCPCS: 87081; 87797 ==